=== PATIENT | male | born 1945 | race Caucasian/White ===

== ENCOUNTER 2017-11-26 15:21 | Observation (INO) | payer OTHER, MEDICARE ==
--- OUTSIDE RECORDS SUMMARY | 2017-11-26 15:50 | XMS REPORT | Clinical Summary ---
:1945 Author Organization [facility] Address [address] [place] [address] Care Team Providers Name Role Phone Alvarez Gustafson MD Primary Care Provider Allergies Active Allergy Reactions Severity Noted Date Comments No Known Drug Allergies 07/20/2015 Current Medications Prescription Sig. Disp. Refills Start End Date Status Date amLODIPine Take 2.5 mg by Active (NORVASC) 5 MG mouth daily. tablet atorvastatin Take 1 tablet by Active (LIPITOR) 10 MG mouth daily. tablet blood sugar USE DIRECTED Active diagnostic strips BID (FREESTYLE LITE STRIPS) strip test strips metFORMIN Take 500 mg by Active (GLUCOPHAGE) 500 mg mouth 2 (two) tablet times a day with meals. 2 tablet twice daily nateglinide Take 120 mg by Active (STARLIX) 120 MG mouth 3 (three) tablet times a day before meals. insulin detemir Inject 35 Units Active U-100 (LEVEMIR) 100 under the skin unit/mL injection nightly. sitaGLIPtin Take 50 mg by Active (JANUVIA) 50 MG mouth daily. tablet traMADol (ULTRAM) Take 50 mg by Active 50 mg tablet mouth as needed for moderate pain. folic acid Take 1 tablet(s) Active (FOLVITE) 1 MG every day by tablet oral route for 90 days. magnesium oxide TK 1 T PO QID. Active (MAGOX) 400 mg tablet aspirin (ECOTRIN) Take 81 mg by Active 81 MG enteric mouth daily. coated tablet CINNAMON BARK Take 1 tablet by Active (CINNAMON ORAL) mouth 2 (two) times a day. Cinnamon + chrome 2000mg omeprazole Take 40 mg by Active (PriLOSEC) 40 MG mouth daily. capsule meclizine meclizine 25 mg Active (ANTIVERT) 25 mg tablet tablet eszopiclone Take 3 mg by Active (LUNESTA) 3 mg mouth as needed tablet for sleep. Take immediately before bedtime testosterone Inject into the Active enanthate shoulder, thigh, (DELATESTRYL) 200 or buttocks mg/mL injection every 30 (thirty) days. 2 mL monthly cyanocobalamin Inject 1,000 mcg Active 1,000 mcg/mL into the injection shoulder, thigh, or buttocks every 30 (thirty) days. gabapentin Take 1 capsule 270 capsule 3 04/20/19 Active (NEURONTIN) 300 mg (300 mg total) 8 19 capsule by mouth 3 (three) times a day. carvedilol (COREG) Take 1 tablet(s) 04/20/19 Discontinued 25 MG tablet twice a day by 18 oral route for 90 days. glimepiride Take 1 tablet(s) 04/20/19 Discontinued (AMARYL) 2 MG twice a day by 18 tablet oral route for 45 days. levETIRAcetam Take 1 tablet(s) 04/20/19 Discontinued (KEPPRA) 500 MG twice a day by 18 tablet oral route for 90 days. sitaGLIPtin Take 1 tablet(s) 04/20/19 Discontinued (JANUVIA) 100 MG every day by 18 tablet oral route for 30 days. 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 Encounters Date Type Specialty Care Team Description 04/19/2017 Procedure visit Neurology Kirk Turk MD Uncontrolled type 2 diabetes mellitus with hyperglycemia, without long-term current use of insulin; Parkinsonism, unspecified Parkinsonism type; Multiple system atrophy 04/19/2017 Orders Only Neurology Vilma Patten RN Chronic bilateral low back pain, with sciatica presence unspecified (Primary Dx) 03/21/2017 Orders Only Neurology Vilma Patten RN Multiple system atrophy (Primary Dx); Parkinsonism, unspecified Parkinsonism type; Uncontrolled type 2 diabetes mellitus with hyperglycemia, without long- term current use of insulin after 11/25/2016 Family History Medical History Relation Name Comments Heart failure Father Heart failure Mother Relation Name Status Comments Father Mother Social History Tobacco Use Types Packs/Day Years Used Date Current Some Day Smoker Smokeless Tobacco: Never Used Alcohol Use Drinks/Week oz/Week Comments No Sex Assigned at Date Recorded Not on file Last Filed Vital Signs Vital Sign Reading Time Taken Blood Pressure 118/56 04/19/2017 8:12 AM [facility] Pulse 51 04/19/2017 8:12 AM [facility] Temperature 35.9 C (96.7 F) 04/19/2017 7:50 AM [facility] Respiratory Rate 16 04/19/2017 7:50 AM [facility] Oxygen Saturation 95% 04/19/2017 7:50 AM [facility] Inhaled Oxygen Concentration - - Weight 80.3 kg (177 lb 1.6 oz) 04/19/2017 7:50 AM [facility] Height 172.7 cm (5' 8") 04/19/2017 7:50 AM [facility] Body Mass Index 26.93 04/19/2017 7:50 AM [facility] Plan of Treatment Health Maintenance Due Date Last Done Comments DIABETIC FOOT EXAM 1957 DIABETIC RETINAL EYE EXAM 1957 URINE MICROALBUMIN 1957 COLON CANCER SCREENING 1997 SHINGRIX VACCINE (#1) 1997 ZOSTER VACCINE 2007 PNEUMOCOCCAL POLYSACCHARIDE VACCINE AGE 65 AND OVER 2012 PNEUMOCOCCAL-13 2012 INFLUENZA VACCINE 09/19/2017 Procedures Procedure Name Priority Date/Time Associated Diagnosis Comments ZZESTIMATED GFR Routine 04/19/2017 7:17 Results for this AM [facility] procedure are in the results section. HEPATIC FUNCTION Routine 04/19/2017 7:17 Uncontrolled type 2 Results for this PANEL AM [facility] diabetes mellitus procedure are in with hyperglycemia, the results without long-term section. current use of insulin Parkinsonism, unspecified Parkinsonism type Multiple system atrophy HC COMPLETE BLD Routine 04/19/2017 7:17 Uncontrolled type 2 Results for this COUNT W/AUTO DIFF AM [facility] diabetes mellitus procedure are in with hyperglycemia, the results without long-term section. current use of insulin Parkinsonism, unspecified Parkinsonism type Multiple system atrophy BASIC METABOLIC Routine 04/19/2017 7:17 Uncontrolled type 2 Results for this PANEL AM [facility] diabetes mellitus procedure are in with hyperglycemia, the results without long-term section. current use of insulin Parkinsonism, unspecified Parkinsonism type Multiple system atrophy after 11/25/2016 Results Estimated GFR (04/19/2017 7:17 AM) GFR Non Af Amer 74 mL/min/1.73 m2 [facility] DEPARTMENT OF PATHOLOGY AND GENOMIC MEDICINE GFR Af Amer 90 mL/min/1.73 m2 [facility] DEPARTMENT OF Comment: PATHOLOGY AND GENOMIC Chronic kidney disease: <60 mL/min/1.73m2 MEDICINE Kidney failure: <15 mL/min/1.73m2 The estimated GFR is calculated from the IDMS-traceable Modification of Diet in Renal Disease Equation. The accuracy of the calculation is poor when the creatinine is normal. Calculated values >90 mL/min/1.73m2 are not reported. This equation has not been validated in children (<18 years), women, the elderly (>70 years), or ethnic groups other than Caucasians and Americans. Specimen Plasma specimen Performing Organization Address City/State/Zipcode Phone Number [facility] DEPARTMENT OF PATHOLOGY AND [address] [place] [address] [facility] CBC with platelet and differential (04/19/2017 7:17 AM) WBC 10.58 4.50 - 11.00 k/uL [facility] DEPARTMENT OF PATHOLOGY AND GENOMIC MEDICINE RBC 5.58 4.40 - 6.00 m/uL [facility] DEPARTMENT OF PATHOLOGY AND GENOMIC MEDICINE HGB 17.2 14.0 - 18.0 g/dL [facility] DEPARTMENT OF PATHOLOGY AND GENOMIC MEDICINE HCT 49.7 41.0 - 51.0 % [facility] DEPARTMENT OF PATHOLOGY AND GENOMIC MEDICINE MCV 89.1 82.0 - 100.0 fL [facility] DEPARTMENT OF PATHOLOGY AND GENOMIC MEDICINE MCH 30.8 27.0 - 34.0 pg [facility] DEPARTMENT OF PATHOLOGY AND GENOMIC MEDICINE MCHC 34.6 31.0 - 37.0 g/dL [facility] DEPARTMENT OF PATHOLOGY AND GENOMIC MEDICINE RDW - SD 43.7 37.0 - 55.0 fL [facility] DEPARTMENT OF PATHOLOGY AND GENOMIC MEDICINE MPV 10.5 8.8 - 13.2 fL [facility] DEPARTMENT OF PATHOLOGY AND GENOMIC MEDICINE Platelet count 285 150 - 400 k/uL [facility] DEPARTMENT OF PATHOLOGY AND GENOMIC MEDICINE Nucleated RBC 0.00 /100 WBC [facility] DEPARTMENT OF PATHOLOGY AND GENOMIC MEDICINE Neutrophils 69.7 (H) 39.0 - 69.0 % [facility] DEPARTMENT OF PATHOLOGY AND GENOMIC MEDICINE Lymphocytes 16.8 (L) 25.0 - 45.0 % [facility] DEPARTMENT OF PATHOLOGY AND GENOMIC MEDICINE Monocytes 9.7 0.0 - 10.0 % [facility] DEPARTMENT OF PATHOLOGY AND GENOMIC MEDICINE Eosinophils 2.7 0.0 - 5.0 % [facility] DEPARTMENT OF PATHOLOGY AND GENOMIC MEDICINE Basophils 0.7 0.0 - 1.0 % [facility] DEPARTMENT OF PATHOLOGY AND GENOMIC MEDICINE Immature granulocytes 0.4Comment: 0.0 - 1.0 % [facility] DEPARTMENT OF "Immature PATHOLOGY AND GENOMIC granulocytes" MEDICINE (promyelocytes, myelocytes, metamyelocytes) Specimen Blood Performing Organization Address City/[facility] Phone Number [facility] DEPARTMENT OF PATHOLOGY AND [address] [place] [id number] [employer] MEDICINE Hepatic function panel (04/19/2017 7:17 AM) Albumin 3.8 3.5 - 5.0 g/dL [facility] DEPARTMENT OF PATHOLOGY AND GENOMIC MEDICINE Total bilirubin 0.3 0.0 - 1.2 mg/dL [facility] DEPARTMENT OF PATHOLOGY AND GENOMIC MEDICINE Bilirubin direct <0.2 0.0 - 0.3 mg/dL [facility] DEPARTMENT OF PATHOLOGY AND GENOMIC MEDICINE Alkaline phosphatase 45 40 - 129 U/L [facility] DEPARTMENT OF PATHOLOGY AND GENOMIC MEDICINE Protein 7.9 6.3 - 8.3 g/dL [facility] DEPARTMENT OF Comment: PATHOLOGY AND GENOMIC [place] 4.6-7.0 g/dL MEDICINE 1 week 4.4-7.6 g/dL 7 months-1year5.1-7.3 g/dL 1-2 years5.6-7.5 g/dL >3 years6.0-8.0 g/dL 18-150 6.3-8.3 g/dL ALT 15 5 - 50 U/L [facility] DEPARTMENT OF PATHOLOGY AND GENOMIC MEDICINE AST 25 10 - 50 U/L [facility] DEPARTMENT OF PATHOLOGY AND GENOMIC MEDICINE Specimen Plasma specimen Performing Organization Address City/[facility] Phone Number [facility] DEPARTMENT OF PATHOLOGY AND [address] [place] [id number] GENOMIC MEDICINE Basic metabolic panel (04/19/2017 7:17 AM) Sodium 133 (L) 135 - 148 mEq/L [facility] DEPARTMENT OF PATHOLOGY AND GENOMIC MEDICINE Potassium 4.9 3.5 - 5.0 mEq/L [facility] DEPARTMENT OF PATHOLOGY AND GENOMIC MEDICINE Chloride 94 (L) 98 - 112 mEq/L [facility] DEPARTMENT OF PATHOLOGY AND GENOMIC MEDICINE CO2 22 (L) 24 - 31 mEq/L [facility] DEPARTMENT OF PATHOLOGY AND GENOMIC MEDICINE Anion gap 17 (H) 7 - 15 mEq/L [facility] DEPARTMENT OF PATHOLOGY Comment: AND GENOMIC MEDICINE Starting from May , anion gap calculation no longer incorporates potassium. Please note the change. BUN 19 8 - 23 mg/dL [facility] DEPARTMENT OF PATHOLOGY AND GENOMIC MEDICINE Creatinine 1.0 0.7 - 1.2 mg/dL [facility] DEPARTMENT OF PATHOLOGY AND GENOMIC MEDICINE Glucose 114 (H) 65 - 99 mg/dL [facility] DEPARTMENT OF PATHOLOGY AND GENOMIC MEDICINE Calcium 9.6 8.8 - 10.2 mg/dL [facility] DEPARTMENT OF PATHOLOGY AND GENOMIC MEDICINE Specimen Plasma specimen Performing Organization Address City/State/Zipcode Phone Number [facility] DEPARTMENT OF PATHOLOGY AND [address] [place] [address] [employer] [facility] after 11/25/2016 Insurance Payer Benefit Plan / Group Subscriber ID Type Phone Address MEDICARE MEDICARE PART A AND B xxxxxxxxxx Medicare [place], [place] AARP AARP SUPPLEMENT xxxxxxxxxxx Commercial [phone] [address]
[2017-11-26] MEDS ORDERED: PROMETHAZINE 25 MG/ML VIAL IV PRN (16:47)
[2017-11-26] MEDS ORDERED: GLUCAGON 1 MG/VIAL IM PRN (16:48)
[2017-11-26] MEDS ORDERED: D50W 25 GM/50 ML SYRINGE IV PRN (16:48)
[2017-11-26] MEDS: NA CHLORIDE 0.9% 1,000 ML IV SCH (17:00)
[2017-11-26 17:11] LABS: Absolute Lymphocytes (CBC) 1.8 K/uL (0.7-4.9); Absolute Neutrophil 8.5 K/uL (1.8-8.0); Basophils % 0.6 % (0-1.3); Eosinophils % 1.7 % (0-4.4); Hematocrit 55.5 % (39.6-49.0); Lymphocytes % 15.2 % (15.3-44.8); MCH 29.9 pg (27.0-35.0); MCV 89.5 fL (80-100); MPV 8.4 fL (7.6-11.3); Monocytes % 8.4 % (3.3-12.3)
[2017-11-26 17:35] LABS: Albumin 3.4 g/dL (3.4-5.0); Bilirubin Total 0.5 mg/dL (0.2-1.0); Potassium 4.3 mmol/L (3.5-5.1); Protein, Total 7.1 g/dL (6.4-8.2); Thyroid Stimulating Hormone 2.05 uIU/mL (0.360-3.740)
[2017-11-26] MEDS: Levofloxacin500mg IV 500 MG/100 ML BAG IV SCH (18:00)
--- NOTE | 2017-11-26 18:38 | RAD REPORT ---
EXAM DESCRIPTION: RAD - Chest Pa And Lat (2 Views) - 11/26/2017 6:20 pm CLINICAL HISTORY: Cough, shortness of breath COMPARISON: Portable September 2016 TECHNIQUE: PA and lateral views of the chest were obtained. FINDINGS: The lungs are clear of an acute infiltrate. Fibrotic stranding is present in a pattern not significantly different from the comparison. Calcified nodule is seen lower right lung field. Lung m arkings are minimally more prominent in the left base but not definitive for infiltrate. Heart size is normal and central vasculature is within normal limits. No pleural effusion or pneumothorax seen . No acute bony finding noted. No aortic abnormality. IMPRESSION: No consolidation, mass or failure. Interstitial markings are slightly increased in the left base but not definitive for infiltrate. This can be monitored and correlated with exam findings.
[2017-11-26 20:14] LABS: Urine Appearance CLEAR; Urine Blood NEGATIVE (NEG); Urine Color YELLOW; Urine Glucose 3+ (NEG); Urine Protein 2+ (NEG); Urine Specific Gravity >=1.030 (1.005-1.030); Urine Urobilinogen 0.2 mg/dL (0.2-1.0)
[2017-11-26] MEDS: INSULIN -REGULAR HUMAN 50 UNIT/0.5 ML ML SQ SCH (20:29)
[2017-11-26] MEDS ORDERED: ESZOPICLONE 1 MG TAB PO PRN (20:35)
[2017-11-26 20:36] LABS: Urine Bacteria <20 /HPF (NONE SEEN); Urine Bilirubin NEGATIVE (NEG); Urine Culture Reflex Order NOT NEEDED; Urine RBC <5 /HPF (NONE SEEN)
[2017-11-26] MEDS ORDERED: ENOXAPARIN 40 MG/0.4 ML SQ SCH (21:00)
[2017-11-26] MEDS ORDERED: ATORVASTATIN 10 MG TAB PO SCH (21:00)
[2017-11-26 21:03] VITALS: BMI 26.2
[2017-11-26] MEDS: MAGNESIUM OXIDE 400 MG TAB PO SCH (22:33)
[2017-11-26] MEDS: ASPIRIN 81 MG CHEWABLE TABLET PO SCH (22:33)
[2017-11-26] MEDS: GABAPENTIN 300 MG CAP PO SCH (22:33)
[2017-11-26] MEDS: TRAMADOL HCL 50 MG TAB PO SCH (22:34)
[2017-11-27] MEDS: METRONIDAZOLE 500mg IVPB 500 MG/100 ML BAG IV SCH ×3 (01:14→17:15)
--- NOTE | 2017-11-27 04:35 | HP ---
Date of Admission: 11/26/2017 Chief Complaint: Abdominal pain, nausea, not eating, and feeling weak and tired. History Of Present Illness: This is a 72-year-old male patient who came into office today with his w lana who reported that in last few weeks patient is constantly sleepy. His legs are more weaker and s hakier than before. He had 2 falls in last 3 months and he was not using his walker so far, but star ariel to use his walker as of today. In last 2 days, he is not able to keep any of his medications mora n in his stomach because of lot of nausea. Denies any vomiting. No fever or chills. Denies any abd ominal pain. He has not had anything to eat or drink in last 2 days except small amount of bowl of c ereal yesterday and nothing today. He normally takes insulin Levemir 40 to 45 units at bedtime and sherice rodriguez did not take his insulin yesterday. Did not take any of his medications today. He has some cough and feels congested in his chest. After he was evaluated in office, he was admitted to the hospital for further evaluation and management of these problems. Review of Systems: GI: As mentioned above. Constitutional: As mentioned above. 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 All other systems reviewed and negative. Past Medical History: Significant for osteoarthritis at multiple sites, allergic rhinitis, testicula r hypofunction, hypertension, hyperkalemia, diabetes mellitus, type 2, uncontrolled, hyperlipidemia, vitamin B12 deficiency anemia, hypomagnesemia, benign prostatic hypertrophy, orthostatic hypotension. Past Surgical History: Significant for right foot surgery in 2013 and cholecystectomy. Allergies: NO KNOWN ALLERGIES. Family History: Significant for father with lung cancer, sister with COPD and coronary artery diseas e and bipolar disorder. Social History: Negative for smoking or alcohol use. Medications: Amlodipine 5 mg p.o. daily, hold if systolic blood pressure less than 130, aspirin 81 m g daily, atorvastatin 10 mg daily, carvedilol 12.5 mg 2 times a day if systolic blood pressure higher than 140, vitamin B12 1000 mcg injection every month, Lunesta 3 mg at bedtime as needed for sleep, f olic acid 1 mg daily, Januvia 100 mg p.o. daily, Levemir 40 to 45 units subcutaneous injection at bed time, Zyrtec 10 mg daily as needed for allergies, testosterone 200 mg/mL and he takes 2 mL intramuscu lar injection every 4 weeks, Ultram 50 mg 4 times a day as needed, sodium polystyrene 30 g by mouth e very week, montelukast 10 mg daily, metformin 500 mg takes 2 tablets by mouth 2 times a day, magnesiu m oxide 400 mg 1 tablet by mouth 4 times a day. Physical Examination: Vital Signs: Initial temperature 97.4, pulse 114, respiratory rate 20, blood pressure 127/77, oxygen saturation 95%, height 5 feet 8 inches, weight 172 pounds. General: Awake, alert, oriented, not in distress. HEENT: Head atraumatic, normocephalic. Conjunctivae nonerythematous. Sclerae white. Mouth, no thr ush or edema noted. Ears/Nose, no mass, lesion, discharge noted. Neck: Supple. No JVD, lymph nodes, bruit, thyromegaly noted. Lungs: Bilateral good equal air entry. Clear to auscultation. No rhonchi. No rales. Heart: Normal heart sounds, no murmur or gallop. Abdomen: Soft, bowel sounds normoactive. No guarding, rigidity, distention. Presence of bilateral lower quadrant tenderness. No rebound tenderness. Extremities: No leg edema. No calf tenderness. Skin: No rash, ulcer, cellulitis. Lymphatics: No lymph node enlargement in neck, supraclavicular, infraclavicular region. Neuro: No focal neurological deficit. Chest: Unremarkable. External Genitalia: Deferred. Rectal: Deferred. Laboratory Data: White count 11.5, hemoglobin 18.5, platelets 260. Sodium 134, potassium 4.3, chlor yissel 99, bicarb 26, BUN 11, creatinine 1.10, glucose 285. Liver function tests unremarkable. Procalc itonin less than 0.05. Lactate 1.5. TSH 2.05. Urinalysis pending. Impression: 1.Abdominal pain, rule out acute diverticulitis. 2.Hypertension. 3.Hyperlipidemia. 4.Type 2 diabetes mellitus, uncontrolled. 5.Benign prostatic hypertrophy. 6.Vitamin B12 deficiency. 7.Testicular hypofunction. 8.Hypomagnesemia. Plan: Admit the patient to hospital for further evaluation and management of this problem. The erin ent is appropriate for inpatient and is expected to spend 2 midnights in hospital. We will go ahead and start him on empiric IV antibiotic which is Levaquin and metronidazole. Get a CAT scan of abdome n and pelvis with contrast. We will manage diabetes with sliding scale insulin. Clear liquid diet w as ordered and we will go ahead and give DVT prophylaxis with Lovenox per order. AGATHA/MODL Voice ID: [id number]
[2017-11-27] MEDS: NA CHLORIDE 0.9% 1,000 ML IV SCH (05:56)
[2017-11-27] MEDS: INSULIN -REGULAR HUMAN 50 UNIT/0.5 ML ML SQ SCH ×4 (07:30→16:30)
[2017-11-27] MEDS ORDERED: INFLUENZA VACCINE (for 3y+) 0.5 ML DOSE IMVAC ONE (08:00)
[2017-11-27] MEDS ORDERED: PANTOPRAZOLE 40MG TABLET PO SCH (09:00)
[2017-11-27] MEDS ORDERED: FOLIC ACID 1 MG TABLET PO SCH (09:00)
[2017-11-27] MEDS: GABAPENTIN 300 MG CAP PO SCH ×2 (09:33→13:33)
[2017-11-27] MEDS: TRAMADOL HCL 50 MG TAB PO SCH (09:33)
[2017-11-27] MEDS: ASPIRIN 81 MG CHEWABLE TABLET PO SCH (09:33)
[2017-11-27] MEDS: MAGNESIUM OXIDE 400 MG TAB PO SCH (09:33)
--- NOTE | 2017-11-27 11:15 | RAD REPORT ---
EXAM DESCRIPTION: CT - Abdomen Pelvis W Contrast - 11/27/2017 9:17 am CLINICAL HISTORY: Abdominal pain COMPARISON: CT March 2007, CT September 2016 TECHNIQUE: Biphasic, helical CT imaging of the abdomen and pelvis was performed following 100 ml non -ionic IV contrast. Oral contrast was given. All CT scans are performed using dose optimization technique as appropriate and may include automated exposure control or mA/KV adjustment according to patient size. FINDINGS: No suspicious findings in the lung bases. Scarring changes are stable. No pericardial effu jessie. The liver, spleen, and pancreas show no suspicious findings. Cholecystectomy clips are present. No bi liary tree dilatation. Symmetric renal function is seen with no hydronephrosis or suspicious renal mass. No pyelonephritis o r acute renal parenchymal process. No urinary bladder abnormality. Prostate gland is prominent but st able. No seminal vesicle abnormality. Fullness of the right adrenal gland is stable back to 2007. No dilated bowel loops or bowel wall thickening. No free air, free fluid or inflammatory stranding. No hernia, mass or bulky lymphadenopathy. No suspicious bony findings. IMPRESSION: No obstruction, free air or surgically emergent finding. No acute GI process identifiabl e. No pyelonephritis or acute process seen. No active finding identifiable.
--- NOTE | 2017-11-27 12:12 | EKG ---
Test Date: 2017-11-27 Test Time: 08:03:10 Staff Developer: DENY MEASUREMENT RESULTS: Intervals: Rate: 94 NV: 146 QRSD: 86 QT: 350 QTc: 437 [place]: P: 62 NV: 146 QRS: 85 T: 47 INTERPRETIVE STATEMENTS: Sinus rhythm with premature ventricular complexes Otherwise normal ECG Compared to ECG 10/05/2016 07:29:32 Ventricular premature complex(es) now present Electronically Signed On 11-27-17 12:11:44 CDT by Drew Sanz
[2017-11-27] MEDS: Levofloxacin500mg IV 500 MG/100 ML BAG IV SCH (17:15)
[2017-11-27 20:19] VITALS: BP 121/85; TEMP 97.4
--- NOTE | 2017-11-28 05:46 | DS ---
Date of Discharge: 11/27/2017 Disposition: Discharged to go home. Physical Examination: HEENT: Unremarkable. Lungs: Clear to auscultation. Heart: Sounds normal. Abdomen: Soft, bowel sounds normal. No guarding, rigidity, tenderness, distention. Extremities: No leg edema. Discharge Medications And Instructions: 1.Continue all prior home medications except stop metformin. 2.Follow up at my office in 1 week. 3.Take Levaquin and metronidazole as prescribed for 1 week. 4.The patient was instructed to come to office day after tomorrow for known fasting blood work to ch tracie renal function and I have also talked to him about not to take metformin until further instructio n. Hospital Course: A 72-year-old male patient, came into office yesterday with nausea, not able to eat anything, feeling weak and sleepy. Please see dictated H and P for more information. After patient was evaluated at the office, decision was made to admit him to the hospital. Further evaluation rev ealed slightly elevated white count, otherwise, unremarkable CBC and chemistry profile. Chest x-ray was unremarkable. EKG showed normal sinus rhythm with some premature atrial complex. No atrial fibr illation. CAT scan of abdomen and pelvis was done today with contrast did not show any acute abnorma lity. Clinically, I was concerned about possibility of acute diverticulitis, so yesterday, he was st arted on IV Levaquin and IV metronidazole. This morning when I saw him, he was feeling much better, had no abdominal tenderness at all. He was started on clear liquid diet yesterday. Today after CAT scan, he was started on regular diet, and this evening, I talked to him on the phone. He is feeling much better. He is ready to go home. Medically, he is stable for discharge. Final Diagnoses: 1.Abdominal pain, rule out acute diverticulitis. 2.Hypertension. 3.Hyperlipidemia. 4.Type 2 diabetes mellitus, uncontrolled. 5.Benign prostatic hypertrophy. 6.Vitamin B12 deficiency. 7.Testicular hypofunction. 8.Hypomagnesemia. AGATHA/MODL Voice ID: [id number] Report ID: [id number]
== END 2017-11-27 20:10 | disposition home or self-care (01) ==
LOC: INTOOBSV 15:48 → 2ND 15:48
PROVIDERS: ADMIT Internal Medicine; ATTEND Internal Medicine
DX: R10.9 Unspecified abdominal pain (principal); I10 Essential (primary) hypertension; E78.5 Hyperlipidemia, unspecified; E11.65 Type 2 diabetes mellitus with hyperglycemia; N40.0 Benign prostatic hyperplasia without lower urinary tract symptoms; E53.8 Deficiency of other specified B group vitamins; E29.1 Testicular hypofunction; E83.42 Hypomagnesemia; Z23 Encounter for immunization
CPT/HCPCS: 36415; 71046; 74177; 80053; 81001; 82962; 83605; 83735; 84145; 84443; 85025; 93005; G0008; G0378; J1650; J2550; J7030; Q2035; Q9967

== ENCOUNTER 2018-10-02 09:51 | Inpatient (IN) | payer OTHER, MEDICARE ==
--- OUTSIDE RECORDS SUMMARY | 2018-10-02 10:00 | XMS REPORT | Clinical Summary ---
:1945 Author Organization [facility] Address [address] [place] [address] Care Team Providers Name Role Phone Alvarez Gustafson MD Primary Care Provider Allergies Active Allergy Reactions Severity Noted Date Comments No Known Drug Allergies 07/20/2015 Medications Medication Sig Dispensed Refills Start Date End Date Status amLODIPine (NORVASC) Take 2.5 mg by 0 Active 5 MG tablet mouth daily. atorvastatin Take 1 tablet by 0 Active (LIPITOR) 10 MG mouth daily. tablet blood sugar USE DIRECTED 0 Active diagnostic strips BID (FREESTYLE LITE STRIPS) strip test strips metFORMIN Take 500 mg by 0 Active (GLUCOPHAGE) 500 mg mouth 2 (two) tablet times a day with meals. 2 tablet twice daily nateglinide Take 120 mg by 0 Active (STARLIX) 120 MG mouth 3 (three) tablet times a day before meals. insulin detemir Inject 35 Units 0 Active U-100 (LEVEMIR) 100 under the skin unit/mL injection nightly. sitaGLIPtin Take 50 mg by 0 Active (JANUVIA) 50 MG mouth daily. tablet traMADol (ULTRAM) 50 Take 50 mg by 0 Active mg tablet mouth as needed for moderate pain. folic acid (FOLVITE) Take 1 tablet(s) 0 Active 1 MG tablet every day by oral route for 90 days. magnesium oxide TK 1 T PO QID. 0 Active (MAGOX) 400 mg tablet aspirin (ECOTRIN) 81 Take 81 mg by 0 Active MG enteric coated mouth daily. tablet CINNAMON BARK Take 1 tablet by 0 Active (CINNAMON ORAL) mouth 2 (two) times a day. Cinnamon + chrome 2000mg omeprazole Take 40 mg by 0 Active (PriLOSEC) 40 MG mouth daily. capsule meclizine (ANTIVERT) meclizine 25 mg 0 Active 25 mg tablet tablet eszopiclone Take 3 mg by 0 Active (LUNESTA) 3 mg mouth as needed tablet for sleep. Take immediately before bedtime testosterone Inject into the 0 Active enanthate shoulder, thigh, (DELATESTRYL) 200 or buttocks every mg/mL injection 30 (thirty) days. 2 mL monthly cyanocobalamin 1,000 Inject 1,000 mcg 0 Active mcg/mL injection into the shoulder, thigh, or buttocks every 30 (thirty) days. gabapentin Take 1 capsule 270 capsule 3 04/19/2017 (NEURONTIN) 300 mg (300 mg total) by 9 capsule mouth 3 (three) times a day. 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 Encounters Date Type Specialty Care Team Description 04/28/2018 Refill Neurology Kirk Turk MD 03/22/2018 Hospital Encounter Radiology Danny Richards MD 03/22/2018 Hospital Encounter Radiology Danny Richards, Parkinson's disease ([facility]) 01/16/2018 Transcribe Orders Access Danny Richards Parkinson's disease ([facility]) (Primary Dx) after 10/01/2017 Family History Medical History Relation Name Comments Heart failure Father Heart failure Mother Relation Name Status Comments Father Mother Social History Tobacco Use Types Packs/Day Years Used Date Current Some Day Smoker Smokeless Tobacco: Never Used Alcohol Use Drinks/Week oz/Week Comments No Sex Assigned at Date Recorded Not on file Job Start Date Occupation Industry Not on file Not on file Not on file Travel History Travel Start Travel End No recent travel history available. Last Filed Vital Signs Not on file Plan of Treatment Health Maintenance Due Date Last Done Comments DIABETIC RETINAL EYE EXAM 1945 DIABETIC FOOT EXAM 1957 URINE MICROALBUMIN 1957 COLONOSCOPY SCREENING 1997 SHINGLES VACCINES (#1) 1997 65+ PNEUMOCOCCAL VACCINE (1 of 2 - PCV13) 2012 INFLUENZA VACCINE 09/19/2018 Procedures Procedure Name Priority Date/Time Associated Diagnosis Comments NM BRAIN SPECT W I Routine 03/22/2018 6:08 PM Parkinson's disease Results for this 123 DATSCAN [facility] ([facility]) procedure are in the results section. after 10/01/2017 Results NM Brain Spect W I 123 Datscan (03/22/2018 6:08 PM [facility]) Specimen Narrative Performed At PROCEDURE:[facility] I [facility] INDICATION:Parkinson's disease. TECHNIQUE: The patient was pretreated with potassium iodide drops for thyroid protection and then injected with 4 mCi of I-123 DaTscan IV. Brain SPECT imaging was then performed. FINDINGS:Striatal uptake appears normal, bilaterally. IMPRESSION: 1.Normal study.No evidence for an underlying primary Parkinsonian syndrome. [facility]-[id number] Procedure Note Interface, Radiology Results Incoming - 03/22/2018 6:40 PM [facility] PROCEDURE: NM BRAIN SPECT W I 123 DATSCAN INDICATION: Parkinson's disease. TECHNIQUE: The patient was pretreated with potassium iodide drops for thyroid protection and then injected with 4 mCi of I-123 DaTscan IV. Brain SPECT imaging was then performed. FINDINGS: Striatal uptake appears normal, bilaterally. IMPRESSION: 1. Normal study. No evidence for an underlying primary Parkinsonian syndrome. [facility]-[id number] Performing Organization Address City/State/Zipcode Phone Number [place] [address] [place] [address] after 10/01/2017 Insurance Payer Benefit Plan / Subscriber ID Effective Dates Phone Address Type Group MEDICARE MEDICARE PART A xxxxxxxxxxx 2012-Present [place], [place] Medicare AND B AARP AARP SUPPLEMENT xxxxxxxxxxx 2014-[employer] [place] (Home) [place] [address] Advance Directives Patient has advance care planning documents on file. For more information, please contact:[facility] [place] [address]
[2018-10-02] MEDS ORDERED: MORPHINE 2 MG/ML SYR ONE (10:36)
[2018-10-02] MEDS ORDERED: ONDANSETRON 4 MG/2 ML VIAL ONE (10:36)
[2018-10-02] MEDS ORDERED: NA CHLORIDE 0.9% 1,000 ML ONE ×2 (10:37→17:09)
[2018-10-02 10:54] LABS: Absolute Lymphocytes (CBC) 1.1 K/uL (0.7-4.9); Basophils % 0.6 % (0-1.3); Lymphocytes % 5.7 % (15.3-44.8); MPV 8.8 fL (7.6-11.3); Protime INR 1.11; RBC Red Blood Cell Count 6.18 M/uL (4.33-5.43)
[2018-10-02 11:10] LABS: ALT/SGPT 15 U/L (12-78); AST/SGOT 13 U/L (15-37); Albumin 3.5 g/dL (3.4-5.0); Alkaline Phosphatase 55 U/L (45-117); BUN Blood Urea Nitrogen 15 mg/dL (7-18); Bicarbonate 25 mmol/L (21-32); Bilirubin Direct 0.1 mg/dL (0-0.2); Bilirubin Total 0.6 mg/dL (0.2-1.0); Glucose Level 290 mg/dL (74-106); Lipase 67 U/L (73-393); Potassium 4.3 mmol/L (3.5-5.1); Protein, Total 7.7 g/dL (6.4-8.2); Sodium Level 133 mmol/L (136-145); Troponin (Emerg Dept Use Only) < 0.02 ng/mL (0.0-0.045)
[2018-10-02] MEDS ORDERED: PROMETHAZINE 25 MG/ML VIAL ONE ×2 (11:17→18:54)
--- NOTE | 2018-10-02 12:16 | RAD REPORT ---
EXAM DESCRIPTION: MRI - Lumbar Spine Wo Con- 10/02/2018 11:45 am CLINICAL HISTORY: recent surgery, diarrhea Back pain, radiculopathy COMPARISON: Lumbar Spine Wo Con dated 04/29/2018; Lumbar Spine Wo Con dated 04/16/2017; L Spine With B ending Views dated 04/29/2018 FINDINGS: Vertebral body heights are within normal limits. Elevated T2/IR signal is present in the spinous process of L4, likely related to recent intervention. No fracture is suspected. The conus medullaris terminates at a normal level. No thickening of the cauda equina or clumping of n erve roots seen. L1-2 level: Mild posterior concentric disc bulge is present with mild facet and ligament flavum hyper trophy. Mild central canal narrowing is seen. Mild narrowing the anterior inferior aspects of both ex it foramina. L2-3 level: Mild facet hypertrophy. L3-4 level: Mild to moderate facet and ligamentum flavum hypertrophy. No significant central canal st enosis seen. Mild narrowing the anterior inferior aspects of both exit foramina. L4-5 level: Mild posterior disc bulge is present. Postsurgical changes are present involving the post erior elements. Mild fluid is seen along the posterior left facet joint measuring 18 mm x 10 mm. Righ t hemilaminectomy is present. Along the dorsal aspect of the canal hypointense oblong structure is pr esent measuring 21 x 12 mm (cc by AP) within the dorsal epidural space. Etiology of this is unclear b ut the findings do result moderate to significant central canal stenosis at this level. L5-S1 level: Mild facet and ligamentum flavum hypertrophy. IMPRESSION: Moderate central canal narrowing is present caused by oblong hypointense structure along the dorsal epidural space at the L4-5 level. Exact etiology and composition of this lesion is not cl ear, however it is new since the pre-procedure 04/29/2018 MR study. A calcified or cartilaginous frag ment is possible. Sequestered disc fragment would be unusual in this location but is not completely e xcluded either.
[2018-10-02 12:48] LABS: Blood Morphology Comment NOT SEEN (NOT SEEN); Platelet Estimate ADEQ
--- NOTE | 2018-10-02 13:05 | RAD REPORT ---
EXAM DESCRIPTION: CTAbdomen Pelvis W Contrast - 10/02/2018 12:58 pm CLINICAL HISTORY: Abdominal pain. abdominal pain, vomiting COMPARISON: Abdomen Pelvis W Contrast dated 11/27/2017; CT ABD PELVIS W CONTRAST dated 04/08/2007 TECHNIQUE: Biphasic CT imaging of the abdomen and pelvis was performed with 100 ml non-ionic IV cont rast. All CT scans are performed using dose optimization technique as appropriate and may include automated exposure control or mA/KV adjustment according to patient size. FINDINGS: Heavily calcified granuloma is present in the right lung base anteriorly. The liver and spleen demonstrate multiple calcified granulomas but are otherwise unremarkable. Modera te thickening of the right adrenal gland seen. The gallbladder surgically absent. The left adrenal gl and is normal. The pancreas and kidneys unremarkable. No aggressive mass or hydronephrosis. No bowel obstruction, free air, free fluid or abscess. The appendix is normal. No evidence of signi ficant lymphadenopathy. Prominent lumbosacral degenerative changes. IMPRESSION: No acute intra-abdominal or pelvic finding. Moderate thickening of the right adrenal gland noted, chronic in appearance.
--- NOTE | 2018-10-02 13:51 | RAD REPORT ---
EXAM DESCRIPTION: RAD - Chest Pa And Lat (2 Views) - 10/02/2018 1:44 pm CLINICAL HISTORY: leukocytosis Chest pain. COMPARISON: Chest Pa And Lat (2 Views) dated 11/26/2017; Chest Single View dated 10/03/2016; Chest Pa And Lat (2 Views) dated 06/09/2016; CHEST SINGLE VIEW dated 05/07/2015; Abdomen Pelvis W Contrast izabel ed 10/02/2018 FINDINGS: Lungs are mildly emphysematous with a calcified granuloma in the right lower lobe. No foca l infiltrate is seen. The heart is normal in size. No displaced fractures. IMPRESSION: Mild COPD.
[2018-10-02] MEDS ORDERED: MAGNE/ALUM HYDROXD 30 ML UCUP ONE (16:35)
[2018-10-02] MEDS ORDERED: LIDOCAINE VISCOUS 2% SOLN 15 ML UDC ONE (16:35)
[2018-10-02 16:41] LABS: Urine Blood 1+ (NEG); Urine Glucose 2+ (NEG); Urine Protein 2+ (NEG); Urine pH 5.5 (5.0-7.0)
--- NOTE | 2018-10-02 17:22 | ER ---
Nurse's Notes [facility] Name: Jeremiah Morales Age: 73 yrs Sex: Male : 1945 Arrival Date: 10/02/2018 Time: 09:54 Bed 19 Private MD: Diagnosis: Vomiting;Leukocystosis;Dehydration Presentation: 10/02 09:54 Presenting complaint: EMS states: VOMITING SINCE LAST PM. Transition of care: patient bp was not received from another setting of care. Onset of symptoms was October 01, 2018 at 20:00. Risk Assessment: Do you want to hurt yourself or someone else? Patient reports no desire to harm self or others. Initial Sepsis Screen: Does the patient meet any 2 criteria? No. Patient's initial sepsis screen is negative. Does the patient have a suspected source of infection? No. Patient's initial sepsis screen is negative. Care prior to arrival: Medication(s) given: zofran 4 mg, IV initiated. 20 GA, in the left wrist, Glucose check: 334. 09:54 Method Of Arrival: EMS: [facility] bp 09:54 Acuity: HEATHER 3 bp Triage Assessment: 09:58 General: Appears in no apparent distress. comfortable, Behavior is cooperative, bp appropriate for age, anxious. Pain: Denies pain. EENT: No deficits noted. Neuro: No deficits noted. Cardiovascular: No deficits noted. Respiratory: No deficits noted. GI: Reports nausea, vomiting. : No signs and/or symptoms were reported regarding the genitourinary system. Derm: No deficits noted. Musculoskeletal: No deficits noted. Historical: - Allergies: 09:58 Grass Pollen; bp - Home Meds: 09:58 aspirin 81 mg Oral chew 1 tab once daily [Active]; atorvastatin 10 mg Oral tab 1 tab bp once daily [Active]; carbamazepine 100 mg Oral chew 1 tab every 12 hours [Active]; carvedilol 12.5 mg Oral tab 1 tab 2 times per day [Active]; fludrocortisone 0.1 mg Oral tab 1 tab once daily [Active]; folic acid 1 mg Oral tab 1 tab once daily [Active]; glimepiride 2 mg Oral tab 1 tab twice a day [Active]; Januvia 100 mg Oral tab 1 tab once daily [Active]; magnesium oxide 400 mg Oral cap twice a day [Active]; trazodone 50 mg Oral tab PRN sleep [Active]; - PMHx: 09:58 Diabetes - NIDDM; Hypertension; 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 - Social history:: Smoking status: unknown. - Ebola Screening: : No symptoms or risks identified at this time. Screenin:02 Abuse screen: Denies threats or abuse. Denies injuries from another. Nutritional bp screening: No deficits noted. Tuberculosis screening: No symptoms or risk factors identified. Fall Risk None identified. Assessment: 10:02 General: SEE TRIAGE NOTE. bp 10:02 GI: Abdomen is non-distended. bp 11:15 Reassessment: PT IN MRI. bp 11:48 Reassessment: PT RETURNED FROM MRI. bp 13:14 Reassessment: PT RETURNED FROM CT. bp 13:35 Reassessment: PT TO XRAY. bp 14:34 Reassessment: PHLEBOTOMY AT B/S FOR ADDITIONAL LABS. bp 16:00 Reassessment: VS STABLE ON MONITOR, DISPO PENDING. bp 17:40 Reassessment: ADMIT IN PROCESS. bp 19:00 Reassessment: Patient appears in no apparent distress at this time. Patient and/or jb4 family updated on plan of care and expected duration. Pain level reassessed. Patient is alert, oriented x 3, equal unlabored respirations, skin warm/dry/pink. Pt assisted back to bed from restroom, reconnected to monitoring equipment. 20:00 Reassessment: Patient appears in no apparent distress at this time. Patient and/or jb4 family updated on plan of care and expected duration. Pain level reassessed. Patient is alert, oriented x 3, equal unlabored respirations, skin warm/dry/pink. 20:41 Reassessment: Patient appears in no apparent distress at this time. Patient and/or jb4 family updated on plan of care and expected duration. Pain level reassessed. Patient is alert, oriented x 3, equal unlabored respirations, skin warm/dry/pink. Assisted back to room from restroom. 20:45 Reassessment: attempted to call report instructed to wait for call back. jb4 21:25 Reassessment: Patient appears in no apparent distress at this time. Patient and/or jb4 family updated on plan of care and expected duration. Pain level reassessed. Patient is alert, oriented x 3, equal unlabored respirations, skin warm/dry/pink. Patient states feeling better. Vital Signs: 09:58 BP 164 / 96; Pulse 82; Resp 16; Temp 98; Pulse Ox 97% ; Weight 74.84 kg; Height 5 ft. 9 bp in. (175.26 cm); 10:43 BP 158 / 113; Pulse 95; Resp 16; Pulse Ox 99% ; bp 11:50 BP 111 / 55; Pulse 88; Resp 16; Pulse Ox 98% ; bp 13:14 BP 180 / 100; Pulse 51; Resp 14; Pulse Ox 100% ; bp 14:31 BP 168 / 98; Pulse 65; Resp 16; Pulse Ox 100% ; bp 15:57 BP 128 / 71; Pulse 48; Resp 14; Pulse Ox 97% ; bp 17:39 BP 100 / 56; Pulse 100; Resp 16; Pulse Ox 100% ; bp 18:47 BP 125 / 66; Pulse 86; Resp 16; Pulse Ox 97% ; bp 20:00 BP 128 / 55; Pulse 95; Resp 16; Pulse Ox 96% on R/A; jb4 20:30 BP 132 / 66; Pulse 98; Resp 18; Temp 97.6(O); Pulse Ox 98% on R/A; jb4 09:58 Body Mass Index 24.37 (74.84 kg, 175.26 cm) bp ED Course: 09:54 Patient arrived in ED. bp 09:55 Triage completed. bp 09:58 Arm band placed on. bp 10:02 Patient has correct armband on for positive identification. Bed in low position. Call bp light in reach. Side rails up X2. 10:04 Jeff Freeman PA is PHCP. jmm 10:04 Gus Casas MD is Attending Physician. jmm 10:14 Pedro Harding, RN is Primary Nurse. bp 10:20 Inserted saline lock: 22 gauge in left hand, using aseptic technique. Blood collected. bp 11:00 Patient moved to MRI via wheelchair. em2 11:05 MRI Lumbar Spine wo Con In Process Unspecified. EDMS 12:58 CT Abd/Pelvis - IV Contrast Only In Process Unspecified. EDMS 13:45 Chest Pa And Lat (2 Views) XRAY In Process Unspecified. EDMS 17:20 Josse Gustafson MD is Hospitalizing Provider. [facility] 17:46 EKG done, by splicing technician. reviewed by Jeff MOSQUEDA. 3 21:25 No provider procedures requiring assistance completed. Patient admitted, IV remains in jb4 place. 21:30 Primary Nurse role handed off by Pedro Harding, RN jb4 21:30 Ahmet López, RN is Primary Nurse. jb4 Administered Medications: 10:20 Drug: NS 0.9% 1000 ml Route: IV; Rate: 1 bolus; Site: left hand; bp 10:20 Drug: Zofran 4 mg Route: IVP; Site: left hand; bp 14:38 Follow up: Response: No adverse reaction; Nausea is decreased bp 10:20 Drug: morphine 2 mg Route: IVP; Site: left hand; bp 14:37 Follow up: Response: No adverse reaction; Pain is decreased bp 11:15 Drug: Promethazine 12.5 mg Route: IVP; Site: left hand; bp 14:37 Follow up: Response: No adverse reaction bp 16:35 Drug: GI Cocktail without - (Maalox Suspension 30 ml, Lidocaine Liquid 2 % 15 bp ml) Route: PO; 17:31 Follow up: Response: No adverse reaction bp 17:00 Drug: NS 0.9% 1000 ml Route: IV; Rate: 1 bolus; Site: left hand; bp 19:00 Follow up: Response: No adverse reaction; IV Status: Completed infusion; IV Intake: jb4 1000ml 17:35 Drug: Rocephin 1 grams Route: IV; Rate: calculated rate; Site: left hand; bp 17:44 Follow up: IV Status: Completed infusion; IV Intake: 20ml bp 18:59 Drug: Promethazine 25 mg Route: IVP; Site: left hand; bp 19:04 Follow up: Response: No adverse reaction bp Intake: 17:44 IV: 20ml; Total: 20ml. bp Outcome: 17:21 Decision to Hospitalize by Provider. [facility] 21:30 Patient left the ED. jb4 22:27 Admitted to Med/surg accompanied by tech, via wheelchair, room 228, with chart, Report jb4 called to Aniat 22:27 Condition: stable 22:27 Discharge instructions given to patient, Instructed on the need for admit, Demonstrated understanding of instructions. Signatures: Dispatcher [facility] EDJeff Li PA PA jmm Montes, Enrique em2 Ahmet López RN RN jb4 Pedro Harding RN RN bp Swetha Viramontes 3
--- NOTE | 2018-10-02 17:23 | EDPHYS ---
Physician Documentation [facility] Name: Jeremiah Morales Age: 73 yrs Sex: Male : 1945 Arrival Date: 10/02/2018 Time: 09:54 Bed 19 Private MD: ED Physician Gus Casas HPI: 10/02 10:15 This 73 yrs old Male presents to ER via EMS with complaints of jmm Nausea/Vomiting. 10:15 The patient presents to the emergency department with nausea, vomiting, diarrhea, jmm abdominal pain, of the right upper quadrant and left upper quadrant. Onset: The symptoms/episode began/occurred 1 day(s) ago. Possible causes: unknown. This is a 73 year old male with a history of dm, htn, that presents to the ED with complaints of vomiting and abdominal pain beginning yesterday. patient states the pain is similar to pain experienced prior to his cholecystectomy. . Historical: - Allergies: 09:58 Grass Pollen; bp - Home Meds: 09:58 aspirin 81 mg Oral chew 1 tab once daily [Active]; atorvastatin 10 mg Oral tab 1 tab bp once daily [Active]; carbamazepine 100 mg Oral chew 1 tab every 12 hours [Active]; carvedilol 12.5 mg Oral tab 1 tab 2 times per day [Active]; fludrocortisone 0.1 mg Oral tab 1 tab once daily [Active]; folic acid 1 mg Oral tab 1 tab once daily [Active]; glimepiride 2 mg Oral tab 1 tab twice a day [Active]; Januvia 100 mg Oral tab 1 tab once daily [Active]; magnesium oxide 400 mg Oral cap twice a day [Active]; trazodone 50 mg Oral tab PRN sleep [Active]; - PMHx: 09:58 Diabetes - NIDDM; Hypertension; 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 - Social history:: Smoking status: unknown. - Ebola Screening: : No symptoms or risks identified at this time. ROS: 10:15 Constitutional: Negative for fever, chills, and weight loss, Cardiovascular: Negative jmm for chest pain, palpitations, and edema, Respiratory: Negative for shortness of breath, cough, wheezing, and pleuritic chest pain. 10:15 MS/Extremity: Negative for injury and deformity, Neuro: Negative for headache, weakness, numbness, tingling, and seizure. 10:15 Abdomen/GI: Positive for abdominal pain, nausea and vomiting, diarrhea. 10:15 Back: Positive for pain with movement. 10:15 All other systems are negative. Exam: 10:15 Head/Face: atraumatic. Eyes: EOMI, no conjunctival erythema appreciated ENT: Moist jmm Mucus Membranes Neck: Trachea midline, Supple Chest/axilla: Normal chest wall appearance and motion. Cardiovascular: Regular rate and rhythm. No edema appreciated Respiratory: Normal respirations, no respiratory distress appreciated 10:15 Constitutional: The patient appears in no acute distress, alert, awake. 10:15 Abdomen/GI: Inspection: abdomen appears normal, Bowel sounds: normal, Palpation: soft, mild abdominal tenderness, in the right upper quadrant, left upper quadrant, right lower quadrant and left lower quadrant. 10:15 Musculoskeletal/extremity: ROM: intact in all extremities. 10:15 Skin: Appearance: Color: normal in color. 10:15 Neuro: Orientation: is normal, Mentation: is normal, Memory: is normal. 10:15 Psych: Behavior/mood is pleasant, cooperative. Vital Signs: 09:58 BP 164 / 96; Pulse 82; Resp 16; Temp 98; Pulse Ox 97% ; Weight 74.84 kg; Height 5 ft. 9 bp in. (175.26 cm); 10:43 BP 158 / 113; Pulse 95; Resp 16; Pulse Ox 99% ; bp 11:50 BP 111 / 55; Pulse 88; Resp 16; Pulse Ox 98% ; bp 13:14 BP 180 / 100; Pulse 51; Resp 14; Pulse Ox 100% ; bp 14:31 BP 168 / 98; Pulse 65; Resp 16; Pulse Ox 100% ; bp 15:57 BP 128 / 71; Pulse 48; Resp 14; Pulse Ox 97% ; bp 17:39 BP 100 / 56; Pulse 100; Resp 16; Pulse Ox 100% ; bp 18:47 BP 125 / 66; Pulse 86; Resp 16; Pulse Ox 97% ; bp 20:00 BP 128 / 55; Pulse 95; Resp 16; Pulse Ox 96% on R/A; jb4 20:30 BP 132 / 66; Pulse 98; Resp 18; Temp 97.6(O); Pulse Ox 98% on R/A; jb4 09:58 Body Mass Index 24.37 (74.84 kg, 175.26 cm) bp MDM: 10:04 Patient medically screened. [facility] 17:18 Data reviewed: vital signs, nurses notes. Counseling: I had a detailed discussion with pedro luis the patient and/or guardian regarding: the historical points, exam findings, and any diagnostic results supporting the discharge/admit diagnosis, lab results, radiology results, the need for further work-up and treatment in the hospital. ED course: I discussed the patient with Dr. Gustafson whom accepted admission. I discussed MRI with Dr. Mai whom did not have concern for abscess or cord compression. . 10/02 10:10 Order name: Basic Metabolic Panel; Complete Time: 11:21 [facility] 10/02 10:10 Order name: CBC with Diff; Complete Time: 12:49 [facility] 10/02 10:10 Order name: Creatinine for Radiology; Complete Time: 11:45 [facility] 10/02 10:10 Order name: Hepatic Function; Complete Time: 11:21 [facility] 10/02 10:10 Order name: Lipase; Complete Time: 11:21 [facility] 10/02 10:10 Order name: Troponin (emerg Dept Use Only); Complete Time: 11:21 [facility] 10/02 10:11 Order name: PT-INR; Complete Time: 10:57 [facility] 10/02 12:48 Order name: Manual Differential; Complete Time: 12:49 [facility] 10/02 13:12 Order name: Procalcitonin; Complete Time: 15:12 [facility] 10/02 13:12 Order name: Lactate; Complete Time: 15:25 [facility] 10/02 13:12 Order name: Blood Culture Adult (2) [facility] 10/02 16:10 Order name: Urine Dipstick--Ancillary (enter results); Complete Time: 16:42 bd 10/02 17:55 Order name: Basic Metabolic Panel [facility] 10/02 17:55 Order name: Basic Metabolic Panel [facility] 10/02 10:10 Order name: MRI Lumbar Spine wo Con; Complete Time: 12:18 [facility] 10/02 12:30 Order name: CT Abd/Pelvis - IV Contrast Only; Complete Time: 13:10 [facility] 10/02 13:24 Order name: Chest Pa And Lat (2 Views) XRAY; Complete Time: 13:53 [facility] 10/02 17:55 Order name: CBC with Automated Diff EDMS 10/02 17:55 Order name: CBC with Automated Diff EDMS 10/02 17:55 Order name: Lipase [facility] 10/02 17:55 Order name: Lipase [facility] 10/02 17:55 Order name: Liver (Hepatic) Function [facility] 10/02 17:55 Order name: Liver (Hepatic) Function [facility] 10/02 10:10 Order name: IV Saline Lock; Complete Time: 10:14 [facility] 10/02 10:10 Order name: Labs collected and sent; Complete Time: 11:00 [facility] 10/02 13:24 Order name: Urine Dipstick-Ancillary (obtain specimen); Complete Time: 14:49 [facility] 10/02 15:43 Order name: PO challenge; Complete Time: 15:53 [facility] 10/02 17:22 Order name: EKG - Nurse/Tech; Complete Time: 17:34 [facility] 10/02 17:55 Order name: NPO [facility] 10/02 18:10 Order name: EKG Electrocardiogram EDNJ Administered Medications: 10:20 Drug: NS 0.9% 1000 ml Route: IV; Rate: 1 bolus; Site: left hand; bp 10:20 Drug: Zofran 4 mg Route: IVP; Site: left hand; bp 14:38 Follow up: Response: No adverse reaction; Nausea is decreased bp 10:20 Drug: morphine 2 mg Route: IVP; Site: left hand; bp 14:37 Follow up: Response: No adverse reaction; Pain is decreased bp 11:15 Drug: Promethazine 12.5 mg Route: IVP; Site: left hand; bp 14:37 Follow up: Response: No adverse reaction bp 16:35 Drug: GI Cocktail without - (Maalox Suspension 30 ml, Lidocaine Liquid 2 % 15 bp ml) Route: PO; 17:31 Follow up: Response: No adverse reaction bp 17:00 Drug: NS 0.9% 1000 ml Route: IV; Rate: 1 bolus; Site: left hand; bp 19:00 Follow up: Response: No adverse reaction; IV Status: Completed infusion; IV Intake: jb4 1000ml 17:35 Drug: Rocephin 1 grams Route: IV; Rate: calculated rate; Site: left hand; bp 17:44 Follow up: IV Status: Completed infusion; IV Intake: 20ml bp 18:59 Drug: Promethazine 25 mg Route: IVP; Site: left hand; bp 19:04 Follow up: Response: No adverse reaction bp Disposition: 10/03 07:06 Co-signature as Attending Physician, Gus Casas MD I agree with the assessment and kdr plan of care. Disposition: 10/02/18 17:21 Hospitalization ordered by Josse Gustafson for Inpatient Admission. Preliminary diagnosis are Vomiting, Leukocystosis, Dehydration. - Bed requested for Telemetry/MedSurg (Inpatient). - Status is Inpatient Admission. jb4 - Condition is Stable. - Problem is new. - Symptoms are unchanged. UTI on Admission? No Signatures: Dispatcher [employer] EDMS Gus Casas MD MD kdr Jeff Freeman PA PA jmm Garcia, Cindy, RN RN cg Ahmet López, PIERO RN jb4 Pedro Harding, PIERO RN bp Corrections: (The following items were deleted from the chart) 10/02 20:35 17:21 Hospitalization Ordered by A Janay NAVARRO for Inpatient Admission. Preliminary cg diagnosis is Vomiting; Leukocystosis; Dehydration. Bed requested for Telemetry/MedSurg (Inpatient). Status is Inpatient Admission. Condition is Stable. Problem is new. Symptoms are unchanged. UTI on Admission? No. [facility] 21:30 20:35 10/02/2018 17:21 Hospitalization Ordered by A Janay NAVARRO for Inpatient Admission. jb4 Preliminary diagnosis is Vomiting; Leukocystosis; Dehydration. Bed requested for Telemetry/MedSurg (Inpatient). Status is Inpatient Admission. Condition is Stable. Problem is new. Symptoms are unchanged. UTI on Admission? No. cg
[2018-10-02] MEDS ORDERED: CEFTRIAXONE/SWI 1gm 1 GM/10 ML SYR ONE (17:42)
[2018-10-02] MEDS ORDERED: ACETAMINOPHEN 500 MG TAB PO PRN (17:52)
[2018-10-02] MEDS ORDERED: D5 0.45 NS 1,000 ML IV SCH (18:00)
[2018-10-02] MEDS ORDERED: CEFTRIAXONE/SWI 1gm 1 GM/10 ML SYR IVP SCH (21:00)
[2018-10-02] MEDS ORDERED: GLUCAGON 1 MG/VIAL IM PRN (21:56)
[2018-10-02] MEDS ORDERED: D50W 25 GM/50 ML SYRINGE IV PRN (21:56)
[2018-10-02] MEDS: HYDROCODONE/APAP 5/325 MG TAB PO PRN (22:42)
[2018-10-02] MEDS: ONDANSETRON 4 MG/2 ML VIAL IV PRN (22:42)
[2018-10-02] MEDS: NA CHLORIDE 0.9% 1,000 ML IV SCH (22:42)
[2018-10-03] MEDS: ONDANSETRON 4 MG/2 ML VIAL IV PRN ×3 (02:41→11:02)
--- NOTE | 2018-10-03 03:42 | HP ---
Date of Admission: 10/02/2018 Chief Complaint: Abdominal pain, nausea, vomiting. History Of Present Illness: Mr. Morales is a pleasant 73-year-old male patient, who started to have n ausea, vomiting, and diffuse abdominal pain as of yesterday. The patient came into emergency room to day. Last bowel movement was day before yesterday and denies any diarrhea. The patient reported ajk t he was vomiting with frequency almost every hour. He did notice some streaks of blood mixed with v omitus, but no reva hematemesis. After he was evaluated in the ER, I was contacted. The patient wa s admitted to the hospital. Denies any recent travel, no recent antibiotic use. Allergies: TO GRASS POLLEN. Medications: List reviewed. Review of Systems: GI: As mentioned above. All other systems reviewed and negative. Past Medical History: Significant for osteoarthritis at multiple sites; type 2 diabetes mellitus, un controlled; testicular hypofunction; hypertension; hyperlipidemia; hyperkalemia; hypomagnesemia; orth ostatic hypotension; benign prostatic hypertrophy. 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 Cholecystectomy. His back surgery was on 07/01/2018. Family History: Significant for bipolar disorder, COPD, coronary artery disease, and lung cancer. Social History: Positive for smoking and alcohol use. Physical Examination: Vital Signs: When he first came into emergency room, blood pressure 164/96, pulse 82, respiratory ra te 16, temperature 98, oxygen saturation 97%. Weight 74.84 kg, height 5 feet 9 inches. General: Awake, alert, oriented, not in distress. HEENT: Head atraumatic, normocephalic. Conjunctivae nonerythematous. Sclerae white. Mouth, no thr ush or edema noted. Ears/Nose, no mass, lesion, discharge noted. Neck: Supple. No JVD, lymph nodes, bruit, thyromegaly noted. Lungs: Bilateral good equal air entry. Clear to auscultation. No rhonchi. No rales. Heart: Normal heart sounds, no murmur or gallop. Abdomen: Very mild diffuse abdominal tenderness. Abdomen is soft. No distention. Bowel sounds nor moactive. No hepatosplenomegaly. No bruit. Extremities: No leg edema. No calf tenderness. Skin: No rash, ulcer, cellulitis. Lymphatics: No lymph node enlargement in neck, supraclavicular, infraclavicular region. Neuro: No focal neurological deficit. Chest: Unremarkable. External Genitalia: Deferred. Rectal: Deferred. Back: Has surgical scar from recent surgery. Scar is well healed. Normal looking skin in the surro unding region. No swelling. No tenderness. Laboratory Data: White count 19.2, hemoglobin 17.6, platelets 352, 89% neutrophils. Procalcitonin l ess than 0.05. Lactic acid level 1.8. Sodium 133, potassium 4.3, chloride 93, bicarb 25, BUN 15, cr eatinine 1.19, glucose 290. Liver function tests unremarkable. Troponin less than 0.02. Lipase 67. Urinalysis; 3+ ketones, 1+ blood, 2+ glucose, 2+ protein, nitrite negative, leukocyte esterase nega tive. MRI of spine shows moderate central canal narrowing caused by oblong hypointense structure along the dorsal epidural space at L4-5 level. Exact etiology and composition of this lesion is not clear; how ever, this is new since the preprocedure MRI from April 29, 2018. Calcified or cartilaginous fragmen t is possible. Suspect this fragment would be unusual in this location, but is not completely exclud ed either. Radiologist does not believe that this is indicating any abscess or infection. This is a ccording to discussion between radiologist and emergency room provider who had contacted me for the a dmission. The patient's CAT scan of abdomen with contrast shows no acute intraabdominal changes, mod erate thickening of the right adrenal gland noted, chronic in appearance. Chest x-ray; mild COPD. Impression: 1.Acute gastroenteritis. 2.Hematemesis. 3.Type 2 diabetes mellitus, uncontrolled. 4.Hypertension. 5.Hyperlipidemia. 6.Benign prostatic hypertrophy. 7.Osteoarthritis, multiple sites. Plan: Admit the patient to hospital for further evaluation and management of this problem. The erin ent is appropriate for inpatient and is expected to spend 2 midnights in the hospital. We will go ah ead and give IV fluid; empiric IV antibiotics, ceftriaxone; symptomatic treatment for nausea, vomitin g; repeat blood work tomorrow. Ambulation will be encouraged with use of physical therapy starting t omorrow. Home medications will be continued per order. We will give IV Protonix and we will repeat blood work tomorrow morning. DVT prophylaxis will be given per order. Details and plan of treatment discussed with the patient. I will see him tomorrow morning for followup. AGATHA/YUVAL Voice ID: [id number]
[2018-10-03] MEDS: HYDROCODONE/APAP 5/325 MG TAB PO PRN ×4 (03:49→22:20)
[2018-10-03 05:58] LABS: Absolute Lymphocytes (CBC) 1.3 K/uL (0.7-4.9); Basophils % 0.2 % (0-1.3); Hematocrit 50.4 % (39.6-49.0); Lymphocytes % 5.6 % (15.3-44.8); MPV 8.9 fL (7.6-11.3); RBC Red Blood Cell Count 5.78 M/uL (4.33-5.43)
[2018-10-03 06:03] LABS: Albumin 3.3 g/dL (3.4-5.0); Bilirubin Direct 0.1 mg/dL (0-0.2); Bilirubin Total 0.5 mg/dL (0.2-1.0); Potassium 4.1 mmol/L (3.5-5.1); Protein, Total 7.3 g/dL (6.4-8.2)
[2018-10-03] MEDS: INSULIN -REGULAR HUMAN 50 UNIT/0.5 ML ML SQ SCH ×4 (08:10→21:00)
[2018-10-03] MEDS: ENOXAPARIN 40 MG/0.4 ML SQ SCH (08:10)
[2018-10-03 08:18] LABS: Blood Morphology Comment NOT SEEN (NOT SEEN); Platelet Estimate ADEQ
[2018-10-03] MEDS ORDERED: CEFTRIAXONE/SWI 1gm 1 GM/10 ML SYR IVP SCH (09:00)
[2018-10-03] MEDS: NA CHLORIDE 0.9% 1,000 ML IV SCH ×3 (09:59→19:38)
[2018-10-03] MEDS: Levofloxacin500mg IV 500 MG/100 ML BAG IV SCH (09:59)
--- NOTE | 2018-10-03 11:37 | EKG ---
Test Date: 2018-10-02 Test Time: 17:42:13 Doper Operator: LLOYD MEASUREMENT RESULTS: Intervals: Rate: 96 FL: 142 QRSD: 84 QT: 374 QTc: 472 [place]: P: 68 FL: 142 QRS: 88 T: 61 INTERPRETIVE STATEMENTS: Sinus rhythm with frequent premature ventricular complexes Otherwise normal ECG Compared to ECG 11/27/2017 08:03:10 No significant changes Electronically Signed On 10-03-18 11:34:55 CDT by Lai Joy
[2018-10-03] MEDS: PROMETHAZINE 25 MG/ML VIAL IV PRN (19:39)
[2018-10-04] MEDS: PROMETHAZINE 25 MG/ML VIAL IV PRN ×5 (00:50→21:06)
--- NOTE | 2018-10-04 01:13 | PN ---
Date of Progress Note: 10/03/2018 Subjective: Patient was seen this morning for followup lying in bed, not in distress, had some nause a, vomiting after I saw him in emergency room last night. Denies any diarrhea. Still has some vague abdominal pain. Overall, abdominal pain is slightly better today than yesterday. No new complaints , problems reported. Objective: Vital Signs: Reviewed. HEENT: Unremarkable. Lungs: Clear to auscultation. Cardiac: Heart sounds normal. Abdomen: Soft, bowel sounds normoactive. No guarding, rigidity, distention, vague diffuse tendernes s present. No rebound tenderness. Extremities: No leg edema. Laboratory Data: Reviewed. White count is 23,000 compared to 19,000, yesterday. Impression: 1.Acute gastroenteritis. 2.Diabetes mellitus, type 2, uncontrolled. 3.Hypertension. Plan: We will go ahead and discontinue ceftriaxone and in place of that start the patient on Levaqui n and metronidazole. IV fluid will be given. We will continue nausea medication as needed. I will see him tomorrow for followup. We will repeat blood work tomorrow. AGATHA/MODL Voice ID: [id number] Report ID: [id number]
[2018-10-04] MEDS: NA CHLORIDE 0.9% 1,000 ML IV SCH ×3 (03:54→15:02)
[2018-10-04] MEDS: HYDROCODONE/APAP 5/325 MG TAB PO PRN (03:57)
[2018-10-04 06:19] LABS: Absolute Lymphocytes (CBC) 1.1 K/uL (0.7-4.9); Basophils % 0.5 % (0-1.3); Hematocrit 48.3 % (39.6-49.0); Lymphocytes % 4.8 % (15.3-44.8); MPV 8.3 fL (7.6-11.3); RBC Red Blood Cell Count 5.58 M/uL (4.33-5.43)
[2018-10-04 06:40] LABS: Magnesium 1.6 mg/dL (1.8-2.4); Potassium 4.1 mmol/L (3.5-5.1)
[2018-10-04] MEDS ORDERED: ESZOPICLONE 1 MG TAB PO PRN (07:07)
[2018-10-04] MEDS: MAGNESIUM OXIDE 400 MG TAB PO SCH ×2 (08:53→20:56)
[2018-10-04] MEDS: CARVEDILOL 12.5 MG TAB PO SCH ×2 (08:53→20:55)
[2018-10-04] MEDS: FAMOTIDINE 20 MG TAB PO SCH (08:54)
[2018-10-04] MEDS: Levofloxacin500mg IV 500 MG/100 ML BAG IV SCH (08:54)
[2018-10-04] MEDS: FOLIC ACID 1 MG TABLET PO SCH (08:54)
[2018-10-04] MEDS: GABAPENTIN 300 MG CAP PO SCH ×3 (08:54→20:56)
[2018-10-04] MEDS: ENOXAPARIN 40 MG/0.4 ML SQ SCH (08:54)
[2018-10-04] MEDS: INSULIN -REGULAR HUMAN 50 UNIT/0.5 ML ML SQ SCH ×4 (08:55→20:56)
[2018-10-04] MEDS ORDERED: SODIUM CHLORIDE 0.9% 10ML INJ IV PRN (09:38)
[2018-10-04] MEDS ORDERED: PANTOPRAZOLE 40 MG INJ IVP ONE (09:38)
[2018-10-04] MEDS ORDERED: MAGNESIUM SULFATE 1 gm IVPB 1 GM/100 ML BAG IV ONE (13:33)
[2018-10-04 16:28] LABS: Absolute Lymphocytes (CBC) 1.4 K/uL (0.7-4.9); Basophils % 0.6 % (0-1.3); Hematocrit 46.9 % (39.6-49.0); Lymphocytes % 7.9 % (15.3-44.8); RBC Red Blood Cell Count 5.39 M/uL (4.33-5.43)
[2018-10-04 16:46] LABS: Albumin 2.5 g/dL (3.4-5.0); Bilirubin Direct 0.2 mg/dL (0-0.2); Bilirubin Total 0.5 mg/dL (0.2-1.0); Potassium 3.8 mmol/L (3.5-5.1); Protein, Total 5.9 g/dL (6.4-8.2)
--- NOTE | 2018-10-04 17:25 | RAD REPORT ---
EXAM DESCRIPTION: CT - Head Brain Wo Cont - 10/04/2018 5:14 pm CLINICAL HISTORY: changes in mentation Headache, drowsiness COMPARISON: Head Brain Wo Cont dated 10/03/2016; HEAD BRAIN W O CONTRAST dated 05/07/2015 TECHNIQUE: All CT scans are performed using dose optimization technique as appropriate and may inclu de automated exposure control or mA/KV adjustment according to patient size. FINDINGS: No intracranial hemorrhage, hydrocephalus or extra-axial fluid collection.Moderate general ized brain atrophy is present with moderate periventricular and deep white matter chronic microvascul ar ischemic changes.No areas of brain edema or evidence of midline shift. The paranasal sinuses and mastoids are clear. The calvarium is intact. IMPRESSION: No acute intracranial abnormality.
[2018-10-04] MEDS ORDERED: POTASSIUM CL SA 10 MEQ TAB PO ONE (21:00)
--- NOTE | 2018-10-04 22:37 | PN ---
Date of Progress Note: 10/04/2018 Subjective: Patient was seen twice today, earlier this morning and this often note. When I saw him this morning, his was present at bedside. Patient denied any new complaints. Overall, he was l ooking better than yesterday, feeling better than yesterday. Still has nausea, which is controlled w ith current nausea medication. Abdominal pain is better. No vomiting. No diarrhea. His appetite h as started to show improvement as of this morning, even though his appetite is poor, but at least it has shown improvement this morning compared to yesterday. Objective: Vital Signs: Reviewed. HEENT: Unremarkable. Lungs: Clear to auscultation. Heart: Sounds normal. Abdomen: Soft. Bowel sounds normal. No guarding, rigidity, tenderness, or distention. Extremities: No leg edema. Back: Old surgical scar from back surgery. No evidence of any redness, swelling, tenderness. When I saw him this afternoon, no change in his exam except his mental status was different. He is a ble to answer simple questions, but unable to answer other questions. Appears weaker than this loyd dc. Follows simple commands. No focal neurological deficits noted and was present with him at bedside. Hospital Course: After I saw him this morning, it was recommended for patient to start ambulating wi th physical therapy and Physical Therapy consultation was requested. As therapies came by to help edward harris get out of bed to sit in the chair, he was extremely weak and with a lot of difficulty, he was able to transfer with assistance from bed to wheelchair and when therapist tried to stand him up, his leg s were very weak and that is the time they noted that the patient was getting confused and patient wa s brought back in the bed. I was contacted and we ordered some stat blood work and I came out to see him. I also ordered a stat CAT scan of head after I saw him. Laboratory Data: This morning, white count 22.5, hemoglobin 15.7, platelets 292. This afternoon, wh ite count 17.8, hemoglobin 15.2, platelets 260. This afternoon, sodium 135, potassium 3.8, chloride 100, bicarb 25, BUN 16, creatinine 1.06, glucose 217. Liver function tests unremarkable. Ammonia le som 17. Procalcitonin level less than 0.05. CAT scan of the head was negative for any acute intracr anial changes as per my discussion with the radiologist. Impression: 1.Acute gastroenteritis. 2.Toxic encephalopathy. 3.Type 2 diabetes mellitus. 4.Hypertension. Plan: Patient's altered mental status that he had this afternoon is likely due to combination of the current infectious etiology and possibility of low blood pressure, transient, during the transfer wh ile he was getting transferred from bed to wheelchair. Hemodynamically, he is stable. He is respond ing well to current antibiotics with improvement in his WBC count as noted. At this point, no need f or any further intervention except I have advised nursing staff to go ahead and put bed check and adv ised the patient not to get out of his bed without any assistance and nurse was advised that the erin ent should use urinal instead of trying to go to the bathroom, and I will see him tomorrow for follow up. Continue current IV fluid. Depending on his condition tomorrow, we will see if we can attempt t o ambulate with physical therapy again tomorrow or not. AGATHA/MODL Voice ID: [id number] Report ID: [id number]
[2018-10-05] MEDS: NA CHLORIDE 0.9% 1,000 ML IV SCH ×4 (01:25→08:22)
[2018-10-05 06:53] LABS: Absolute Lymphocytes (CBC) 1.4 K/uL (0.7-4.9); Basophils % 0.3 % (0-1.3); Hematocrit 43.4 % (39.6-49.0); Lymphocytes % 9.2 % (15.3-44.8); MPV 8.3 fL (7.6-11.3); RBC Red Blood Cell Count 4.97 M/uL (4.33-5.43)
[2018-10-05 07:12] LABS: BUN Blood Urea Nitrogen 11 mg/dL (7-18); Bicarbonate 24 mmol/L (21-32); Glucose Level 179 mg/dL (74-106); Potassium 3.8 mmol/L (3.5-5.1); Sodium Level 137 mmol/L (136-145)
[2018-10-05] MEDS: INSULIN -REGULAR HUMAN 50 UNIT/0.5 ML ML SQ SCH ×4 (07:30→19:54)
[2018-10-05] MEDS: FOLIC ACID 1 MG TABLET PO SCH (07:56)
[2018-10-05] MEDS: Levofloxacin500mg IV 500 MG/100 ML BAG IV SCH (07:56)
[2018-10-05] MEDS: ENOXAPARIN 40 MG/0.4 ML SQ SCH (07:56)
[2018-10-05] MEDS: GABAPENTIN 300 MG CAP PO SCH ×3 (07:57→20:50)
[2018-10-05] MEDS: CARVEDILOL 12.5 MG TAB PO SCH ×2 (07:58→20:50)
[2018-10-05] MEDS: FAMOTIDINE 20 MG TAB PO SCH (07:58)
[2018-10-05] MEDS: MAGNESIUM OXIDE 400 MG TAB PO SCH ×2 (07:58→20:50)
[2018-10-05] MEDS: PANTOPRAZOLE 40 MG INJ IVP SCH (07:58)
[2018-10-05] MEDS: HYDROCODONE/APAP 5/325 MG TAB PO PRN (08:00)
[2018-10-05] MEDS ORDERED: POTASSIUM CL SA 10 MEQ TAB PO ONE (09:00)
[2018-10-05] MEDS ORDERED: MAGNESIUM HYDROXIDE 8% 30 ML PO PRN (09:52)
[2018-10-05] MEDS: PROMETHAZINE 25 MG/ML VIAL IV PRN (12:14)
--- NOTE | 2018-10-05 14:53 | PN ---
Date of Progress Note: 10/05/2018 Subjective: Patient was seen this morning for followup. No new complaints or problems reported by p gunnarlianna. His was present with him at bedside and patient and his they both reported he is b ack to his normal baseline. All the problems from yesterday has resolved. This morning, his appetit e is back to normal. He was able to feed himself yesterday evening. He was not able to feed himself at all. No more confusion. Has still some nausea, but no vomiting. Objective: Vital Signs: Reviewed. HEENT: Examination unremarkable. Lungs: Clear to auscultation. Heart: Sounds normal. Abdomen: Soft. Bowel sounds normal. No guarding, rigidity, tenderness, or distention. Extremity Exam: No leg edema. Laboratory Data: White count 15.4, hemoglobin 14.4, platelets 240. Sodium 137, potassium 3.8, chlor yissel 105, bicarb 24, BUN 11, glucose 179, magnesium 2. Impression: 1.Acute gastroenteritis. 2.Toxic encephalopathy, resolved. 3.Diabetes mellitus. Plan: We will go ahead and continue current IV antibiotic. IV fluid will be reduced. Ambulation was encouraged. We will repeat blood work tomorrow and our plan is to possibly discharge him to go home tomorrow depending on his condition. I had a long discussion with the patient and his and unde rstand that the patient has some periods of confusion at home from time to time with some short-term memory problem. He keeps on asking same questions sometimes multiple times throughout the day. He a lso stays very inactive, stays in bed most of the time as reported and I did advice him to exerc ise on his stationary bicycle 30 to 40 minutes a day on a daily basis and also advised him not to sta y in bed all day and to try to stay active. While here in the hospital in bed, leg raising exercise is advised, ambulation was advised and I have also discussed with him about importance of getting radha luation done by neurologist for dementia problem and he has seen Dr. Richards and he will schedule hi s appointment on outpatient basis. AGATHA/MODL Voice ID: [id number] Report ID: [id number]
[2018-10-05] MEDS ORDERED: MAGNES/ALUMIN/SIMET 30ML UCUP PO PRN (17:20)
[2018-10-05 21:38] VITALS: BMI 24.5
[2018-10-06] MEDS: PROMETHAZINE 25 MG/ML VIAL IV PRN (03:39)
[2018-10-06] MEDS: NA CHLORIDE 0.9% 1,000 ML IV SCH (05:00)
[2018-10-06 06:51] LABS: BUN Blood Urea Nitrogen 10 mg/dL (7-18); Bicarbonate 25 mmol/L (21-32); Glucose Level 168 mg/dL (74-106); Magnesium 1.8 mg/dL (1.8-2.4); Potassium 3.6 mmol/L (3.5-5.1); Sodium Level 135 mmol/L (136-145)
[2018-10-06 07:22] LABS: Absolute Lymphocytes (CBC) 1.6 K/uL (0.7-4.9); Basophils % 0.4 % (0-1.3); Hematocrit 45.8 % (39.6-49.0); Lymphocytes % 14.4 % (15.3-44.8); MPV 8.7 fL (7.6-11.3)
[2018-10-06] MEDS: INSULIN -REGULAR HUMAN 50 UNIT/0.5 ML ML SQ SCH (07:30)
[2018-10-06] MEDS: Levofloxacin500mg IV 500 MG/100 ML BAG IV SCH (08:23)
[2018-10-06] MEDS: PANTOPRAZOLE 40 MG INJ IVP SCH (08:24)
[2018-10-06] MEDS: GABAPENTIN 300 MG CAP PO SCH (08:24)
[2018-10-06] MEDS: ENOXAPARIN 40 MG/0.4 ML SQ SCH (08:24)
[2018-10-06] MEDS: FOLIC ACID 1 MG TABLET PO SCH (08:25)
[2018-10-06] MEDS: MAGNESIUM OXIDE 400 MG TAB PO SCH (08:25)
[2018-10-06] MEDS: FAMOTIDINE 20 MG TAB PO SCH (08:25)
[2018-10-06] MEDS: CARVEDILOL 12.5 MG TAB PO SCH (08:25)
[2018-10-06 08:32] VITALS: BP 170/93; TEMP 97.9
[2018-10-06 09:56] VITALS: O2SAT 97
[2018-10-06] MEDS ORDERED: POTASSIUM CL SA 10 MEQ TAB PO ONE (11:00)
--- NOTE | 2018-10-06 11:44 | DS ---
Date of Discharge: 10/06/2018 Physical Examination: HEENT: Examination unremarkable. Lungs: Clear to auscultation. Heart: Sounds normal. Abdomen: Soft. Bowel sounds normal. No guarding, rigidity, tenderness, or distention. Extremities: No leg edema. Laboratory Data: Upon admission on 10/02/2018, white count 19.2, hemoglobin 17.6, platelets 352. Hi emma white count was on 10/03/2018, it was 23.2, hemoglobin 16.2, platelets 328. Last white count t estefany 11, hemoglobin 15, platelets 247. Last chemistry today: Sodium 135, potassium 3.6, chloride 10 0, bicarb 25, BUN 10, creatinine 0.84, glucose 168, magnesium 1.8. Discharge Medications And Instructions: 1.Continue all prior home medications. 2.Follow up at my office a week after next. 3.Follow up with Dr. Weir for EGD and Dr. Richards for dementia evaluation in 1 to 2 weeks. 4.Follow up with Dr. Hardin with copy of MRI film and MRI report which was given to patient. 5.Do not take any Aleve or Motrin type of medications. 6.Do not drink any alcohol. 7.Take following new medications: Protonix 40 mg 1 tablet by mouth daily, [address], sucralfate 1 g 3 times a day, take it 15 minutes before meal. 8.Levaquin 500 mg p.o. daily for 1 week. 9.Metronidazole 500 mg 3 times a day for 1 week. 10.Promethazine 25 mg p.o. 4 times a day as needed for nausea, vomiting. Hospital Course: This is a 73-year-old pleasant male patient, admitted to the hospital with abdomina l pain, nausea, vomiting. Please see dictated H and P for more information. After patient was evalu ated in the emergency room, he was admitted to the hospital. CAT scan of abdomen with contrast showe d no acute intraabdominal changes, moderate thickening of the right adrenal gland noted, chronic in a ppearance. Chest x-ray showed mild COPD. MRI of the lumbar spine showed moderate central canal narr owing caused by oblong hypointense structure along the dorsal epidural space at L4-5 level, exact ino ology and composition of this lesion is not clear, however, this is new since preprocedure MRI from [facility] 2018. The calcified or cartilaginous fragment is possible. I suspect this fragment would b e unusual in this location, but it is not completely excluded either and radiologist does not believe that this is indicating any abscess or infection. Final Diagnoses: 1.Acute gastroenteritis. 2.Hematemesis, resolved. 3.Gastroesophageal reflux disease with esophagitis. 4.Type 2 diabetes mellitus, uncontrolled. 5.Hypertension. 6.Hyperlipidemia. 7.Benign prostatic hypertrophy. 8.Osteoarthritis, multiple sites. 9.Chronic back pain. 10.Memory loss. Hospital Course: 73-year-old patient admitted to the hospital with abdominal pain, nausea, vomiting. Please see dictated H and P for more information. After patient was evaluated in the emergency lennox m, he was admitted to the hospital with acute gastroenteritis. IV fluids and IV antibiotic were star ariel. Initially, he was started on ceftriaxone. White count was 19,000 when he came in. Day after a dmission, white count went up to 23,000, so ceftriaxone was discontinued and we started him on Levaqu in and metronidazole and he responded well to this antibiotic and white count started getting better. Over the period of this hospitalization his condition started to improve. Nausea improved. He did not have any further episode of vomiting or hematemesis, but he still continued to require nausea me dication, and he did not respond as well to Zofran, so we started him on Phenergan and responded well to that. Abdominal pain problem has resolved. His appetite is not good, but has improved. He star ariel to have complaints of pain with swallowing food or liquids and it is a sharp burning type of pain in the midchest area that starts with eating. Along with famotidine, we started him on IV Protonix and Maalox and he is still continues to have this problem, so upon discharge today we will go ahead a nd add sucralfate and I have asked him to follow up with his production engineer track, Dr. Weir for conside ration of EGD. I have also given him copy of MRI results and MRI film that was done during this [facility] room visit and he will schedule his appointment to see his back specialist, Dr. Hardin. He has chronic back pain that has not changed since his surgery. He is having some memory problem as repor ariel by him and his and he has seen Dr. Richards in the past and I have advised him to follow up with him for further evaluation for this memory problem as he may have some beginning of underlying d ementia. Overall, patient's condition has improved. Medically, he is stable for discharge with abov e-mentioned medications and instructions. AGATHA/MODL Voice ID: [id number] Report ID: [id number]
== END 2018-10-06 10:44 | disposition home or self-care (01) | DRG 391 ==
LOC: ER 09:51 → ERHOLD 17:51 → 2ND 21:03
PROVIDERS: ADMIT Internal Medicine; ATTEND Internal Medicine
DX: K52.9 Noninfective gastroenteritis and colitis, unspecified (principal); G92 Toxic encephalopathy; K92.0 Hematemesis; K21.0 Gastro-esophageal reflux disease with esophagitis; E11.65 Type 2 diabetes mellitus with hyperglycemia; I10 Essential (primary) hypertension; E78.5 Hyperlipidemia, unspecified; N40.0 Benign prostatic hyperplasia without lower urinary tract symptoms; M19.90 Unspecified osteoarthritis, unspecified site; M54.9 Dorsalgia, unspecified; R41.3 Other amnesia
CPT/HCPCS: 36415; 70450; 71046; 72148; 74177; 80048; 80076; 81003; 82140; 82962; 83605; 83690; 83735; 84145; 84484; 85025; 85610; 87040; 93005; 96361; 96374; 96375; 97112; 97116; 97161; 97530; 99285; C9113; J0696; J1650; J2270; J2405; J2550; J3475; J7030; Q9967

== ENCOUNTER 2018-10-06 23:10 | Emergency (ER) | payer OTHER, MEDICARE ==
[2018-10-07 00:16] LABS: Absolute Lymphocytes (CBC) 1.7 K/uL (0.7-4.9); Basophils % 0.5 % (0-1.3); Hematocrit 41.6 % (39.6-49.0); Lymphocytes % 17.4 % (15.3-44.8); MPV 8.8 fL (7.6-11.3); RBC Red Blood Cell Count 4.77 M/uL (4.33-5.43)
[2018-10-07 00:33] LABS: Albumin 2.4 g/dL (3.4-5.0); Bilirubin Total 0.3 mg/dL (0.2-1.0); Potassium 3.7 mmol/L (3.5-5.1); Protein, Total 5.5 g/dL (6.4-8.2)
[2018-10-07] MEDS ORDERED: NA CHLORIDE 0.9% 1,000 ML ONE (00:50)
--- NOTE | 2018-10-07 01:51 | ER ---
Nurse's Notes [facility] Name: Jeremiah Morales Age: 73 yrs Sex: Male : 1945 Arrival Date: 10/06/2018 Time: 23:11 Bed 26 Private MD: Diagnosis: Dehydration;Weakness Presentation: 10/06 23:16 Presenting complaint: EMS states: called for EMS because patient is too weak. he rv was out in the porch all day. does not eat or drink much because of nausea. patient just got discharged today for Gastroenteritis. there are also episode that the patient was confused. patient stated that he took Ackley 2 pills together with sleep aid at 1944. Transition of care: patient was not received from another setting of care. Onset of symptoms was October 06, 2018 at 12:00. Risk Assessment: Do you want to hurt yourself or someone else? Patient reports no desire to harm self or others. Initial Sepsis Screen: Does the patient meet any 2 criteria? No. Patient's initial sepsis screen is negative. Does the patient have a suspected source of infection? No. Patient's initial sepsis screen is negative. Care prior to arrival: None. 23:16 Method Of Arrival: EMS: [facility] rv 23:16 Acuity: HEATHER 3 rv Historical: - Allergies: 23:22 Grass Pollen; rv - Home Meds: 23:22 aspirin 81 mg Oral chew 1 tab once daily [Active]; atorvastatin 10 mg Oral tab 1 tab rv once daily [Active]; carbamazepine 100 mg Oral chew 1 tab every 12 hours [Active]; carvedilol 12.5 mg Oral tab 1 tab 2 times per day [Active]; fludrocortisone 0.1 mg Oral tab 1 tab once daily [Active]; folic acid 1 mg Oral tab 1 tab once daily [Active]; glimepiride 2 mg Oral tab 1 tab twice a day [Active]; Januvia 100 mg Oral tab 1 tab once daily [Active]; magnesium oxide 400 mg Oral cap twice a day [Active]; trazodone 50 mg Oral tab PRN sleep [Active]; - PMHx: 23:22 Diabetes - NIDDM; Hypertension; 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 - Social history:: Smoking status: Patient uses tobacco products, smokes one pack cigarettes per day. - Ebola Screening: : No symptoms or risks identified at this time. Screenin:25 Abuse screen: Denies threats or abuse. Denies injuries from another. Nutritional rv screening: No deficits noted. Tuberculosis screening: No symptoms or risk factors identified. Fall Risk None identified. Assessment: 23:22 General: Appears in no apparent distress. comfortable, Behavior is cooperative, drowsy. rv Pain: Denies pain. Neuro: Level of Consciousness is awake, obeys commands, drowsy. Oriented to person, place, time, situation. Cardiovascular: Patient's skin is warm and dry. Rhythm is sinus rhythm with unifocal PVCs. Respiratory: Airway is patent. GI: No signs and/or symptoms were reported involving the gastrointestinal system. : No signs and/or symptoms were reported regarding the genitourinary system. EENT: No signs and/or symptoms were reported regarding the EENT system. Derm: Skin is intact. Musculoskeletal: No signs and/or symptoms reported regarding the musculoskeletal system. Vital Signs: 23:12 BP 97 / 56; Pulse 80; Resp 16; Temp 98.5(O); Pulse Ox 99% on R/A; lt1 10/07 00:00 BP 112 / 65; Pulse 66; Resp 16; Pulse Ox 98% on R/A; rv 00:30 BP 115 / 68; Pulse 69; Resp 15; Pulse Ox 98% on R/A; rv 00:47 BP 106 / 49 Sitting; Pulse 75; Resp 16; Pulse Ox 98% on R/A; rv 00:48 BP 92 / 57 Standing; Pulse 80; Resp 16; Pulse Ox 98% ; rv 01:58 BP 115 / 64; Pulse 79; Resp 15; Pulse Ox 98% on R/A; rv 00:47 COMPLAINS OF DIZZINESS rv 00:48 ABLE TO STAND UP AND DID NOT COMPLAIN OF DIZZINESS rv ED Course: 10/06 23:11 Patient arrived in ED. ds1 23:12 Perez Rivera, RN is Primary Nurse. rv 23:19 Triage completed. rv 23:25 Maintain EMS IV. Dressing intact. Good blood return noted. Site clean \T\ dry. Gauge \T\ rv site: G18 RIGHT FA. 23:25 Patient has correct armband on for positive identification. Placed in gown. Bed in low rv position. Call light in reach. Side rails up X 1. Adult w/ patient. youth nutritional monitor on. Pulse ox on. NIBP on. 23:26 Patient placed in the treatment room, on a stretcher, on youth nutritional monitor, on pulse rv oximetry, Patient notified of wait time. Arm band placed on right wrist. EKG completed in triage. Results shown to MD. 23:29 Minh Kulkarni NP is PHCP. pm1 23:29 Marcelo Julian MD is Attending Physician. pm1 08 01:58 No provider procedures requiring assistance completed. IV discontinued, intact, rv bleeding controlled, No redness/swelling at site. Pressure dressing applied. Administered Medications: 10/06 23:49 Drug: NS 0.9% 1000 ml Route: IV; Rate: 1000 ml; Site: right forearm; rv 10/07 00:41 Follow up: IV Status: Completed infusion; IV Intake: 1000ml rv Intake: 00:41 IV: 1000ml; Total: 1000ml. rv Outcome: 01:44 Discharge ordered by MD. pm1 01:58 Discharged to home ambulatory, with family. rv 01:58 Condition: improved 01:58 Discharge instructions given to patient, family, Instructed on discharge instructions, follow up and referral plans. Demonstrated understanding of instructions, follow-up care. 01:58 Patient left the ED. rv Signatures: Kim Sen ds1 Minh Kulkarni NP CNC MAINTENANCE TECHNICIAN pm1 Perez Rivera RN RN rv Nani Severino lt1
--- NOTE | 2018-10-07 01:52 | EDPHYS ---
Physician Documentation [facility] Name: Jeremiah Morales Age: 73 yrs Sex: Male : 1945 Arrival Date: 10/06/2018 Time: 23:11 Bed 26 Private MD: ED Physician Marcelo Julian HPI: 10/07 00:00 This 73 yrs old Male presents to ER via EMS with complaints of Weakness, pm1 Nausea. 00:00 The patient presents to the emergency department with weakness of the entire body, pm1 generalized weakness. Onset: The symptoms/episode began/occurred last night. Context: occurred at home, occurred while the patient was trying to get up from chair on the porch. Patient took two Norcos and a sleep aid at 1944 prior to going out on to the porch. had difficulty getting him up from the chair. Associated signs and symptoms: Pertinent positives: nausea, Pertinent negatives: fever, focal deficits, vomiting. Patient's baseline: Neuro: alert and fully oriented, Motor: no deficits, Ambulation: walks with assist only, uses walker, Speech: normal. The patient has been recently been admitted at [facility], by Dr. Gustafson, was discharged yesterday, for similar complaints. Historical: - Allergies: 10/06 23:22 Grass Pollen; rv - Home Meds: 23:22 aspirin 81 mg Oral chew 1 tab once daily [Active]; atorvastatin 10 mg Oral tab 1 tab rv once daily [Active]; carbamazepine 100 mg Oral chew 1 tab every 12 hours [Active]; carvedilol 12.5 mg Oral tab 1 tab 2 times per day [Active]; fludrocortisone 0.1 mg Oral tab 1 tab once daily [Active]; folic acid 1 mg Oral tab 1 tab once daily [Active]; glimepiride 2 mg Oral tab 1 tab twice a day [Active]; Januvia 100 mg Oral tab 1 tab once daily [Active]; magnesium oxide 400 mg Oral cap twice a day [Active]; trazodone 50 mg Oral tab PRN sleep [Active]; - PMHx: 23:22 Diabetes - NIDDM; Hypertension; 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 - Social history:: Smoking status: Patient uses tobacco products, smokes one pack cigarettes per day. - Ebola Screening: : No symptoms or risks identified at this time. ROS: 10/07 00:00 Constitutional: Negative for fever, chills, and weight loss, Eyes: Negative for injury, pm1 pain, redness, and discharge, ENT: Negative for injury, pain, and discharge, Neck: Negative for injury, pain, and swelling, Cardiovascular: Negative for chest pain, palpitations, and edema, Respiratory: Negative for shortness of breath, cough, wheezing, and pleuritic chest pain, Back: Negative for injury and pain, : Negative for injury, bleeding, discharge, and swelling, MS/Extremity: Negative for injury and deformity, Skin: Negative for injury, rash, and discoloration. Abdomen/GI: Positive for nausea, Negative for abdominal pain, vomiting, diarrhea, constipation. Neuro: Positive for weakness, generalized. Exam: 00:00 Constitutional: This is a well developed, well nourished patient who is awake, alert, pm1 and in no acute distress. Head/Face: Normocephalic, atraumatic. Eyes: Pupils equal round and reactive to light, extra-ocular motions intact. Lids and lashes normal. Conjunctiva and sclera are non-icteric and not injected. Cornea within normal limits. Periorbital areas with no swelling, redness, or edema. ENT: Nares patent. No nasal discharge, no septal abnormalities noted. Tympanic membranes are normal and external auditory canals are clear. Oropharynx with no redness, swelling, or masses, exudates, or evidence of obstruction, uvula midline. Mucous membranes moist. Neck: Trachea midline, no thyromegaly or masses palpated, and no cervical lymphadenopathy. Supple, full range of motion without nuchal rigidity, or vertebral point tenderness. No Meningismus. Chest/axilla: Normal chest wall appearance and motion. Nontender with no deformity. No lesions are appreciated. Cardiovascular: Regular rate and rhythm with a normal S1 and S2. No gallops, murmurs, or rubs. Normal PMI, no JVD. No pulse deficits. Respiratory: Lungs have equal breath sounds bilaterally, clear to auscultation and percussion. No rales, rhonchi or wheezes noted. No increased work of breathing, no retractions or nasal flaring. Abdomen/GI: Soft, non-tender, with normal bowel sounds. No distension or tympany. No guarding or rebound. No evidence of tenderness throughout. Back: No spinal tenderness. No costovertebral tenderness. Full range of motion. Skin: Warm, dry with normal turgor. Normal color with no rashes, no lesions, and no evidence of cellulitis. MS/ Extremity: Pulses equal, no cyanosis. Neurovascular intact. Full, normal range of motion. 00:00 Neuro: Orientation: is normal, Mentation: is normal, Motor: is normal, moves all fours, Sensation: is normal, no obvious gross deficits. Vital Signs: 10/06 23:12 BP 97 / 56; Pulse 80; Resp 16; Temp 98.5(O); Pulse Ox 99% on R/A; lt1 10/07 00:00 BP 112 / 65; Pulse 66; Resp 16; Pulse Ox 98% on R/A; rv 00:30 BP 115 / 68; Pulse 69; Resp 15; Pulse Ox 98% on R/A; rv 00:47 BP 106 / 49 Sitting; Pulse 75; Resp 16; Pulse Ox 98% on R/A; rv 00:48 BP 92 / 57 Standing; Pulse 80; Resp 16; Pulse Ox 98% ; rv 01:58 BP 115 / 64; Pulse 79; Resp 15; Pulse Ox 98% on R/A; rv 00:47 COMPLAINS OF DIZZINESS rv 00:48 ABLE TO STAND UP AND DID NOT COMPLAIN OF DIZZINESS rv MDM: 10/06 23:29 Patient medically screened. pm1 10/07 01:44 Data reviewed: vital signs. Data interpreted: Pulse oximetry: on room air is 98 %. pm1 Interpretation: normal. Counseling: I had a detailed discussion with the patient and/or guardian regarding: the historical points, exam findings, and any diagnostic results supporting the discharge/admit diagnosis, lab results, the need for outpatient follow up, to return to the emergency department if symptoms worsen or persist or if there are any questions or concerns that arise at home. 10/06 23:44 Order name: CBC with Diff pm1 10/06 23:44 Order name: CMP; Complete Time: 00:37 pm1 10/06 23:44 Order name: ETOH Level; Complete Time: 00:37 pm1 10/06 23:44 Order name: Orthostatics; Complete Time: 00:41 pm1 10/06 23:44 Order name: IV Saline Lock; Complete Time: 23:49 pm1 Administered Medications: 10/06 23:49 Drug: NS 0.9% 1000 ml Route: IV; Rate: 1000 ml; Site: right forearm; rv 10/07 00:41 Follow up: IV Status: Completed infusion; IV Intake: 1000ml rv Disposition: 10:53 Co-signature as Attending Physician, Marcelo Julian MD I agree with the assessment and 4 plan of care. Disposition: 10/07/18 01:44 Discharged to Home. Impression: Dehydration, Weakness. - Condition is Stable. - Discharge Instructions: Dehydration, Adult, Weakness, Rehydration, Adult. - Medication Reconciliation Form, Thank You Letter, Antibiotic Education, Prescription Opioid Use form. - Follow up: Emergency Department; When: As needed; Reason: Worsening of condition. Follow up: Private Physician; When: 2 - 3 days; Reason: Recheck today's complaints, Continuance of care, Re-evaluation by your physician. - Problem is new. - Symptoms have improved. Signatures: Dispatcher [employer] EDMS Minh Kulkarni, ACID CHANGER ACID CHANGER pm1 Marcelo Julian MD MD tw4 Perez Rivera RN RN rv Corrections: (The following items were deleted from the chart) 01:58 01:44 10/07/2018 01:44 Discharged to Home. Impression: Dehydration; Weakness. Condition rv is Stable. Forms are Medication Reconciliation Form, Thank You Letter, Antibiotic Education, Prescription Opioid Use. Follow up: Emergency Department; When: As needed; Reason: Worsening of condition. Follow up: Private Physician; When: 2 - 3 days; Reason: Recheck today's complaints, Continuance of care, Re-evaluation by your physician. Problem is new. Symptoms have improved. pm1
[2018-10-07 03:00] VITALS: TEMP 98.5
[2018-10-07 03:24] VITALS: O2SAT 98
[2018-10-07 03:28] VITALS: BP 115/64
--- NOTE | 2018-10-07 09:59 | EKG ---
Test Date: 2018-10-06 Test Time: 23:19:40 Haulage Engine Operator: JESUST MEASUREMENT RESULTS: Intervals: Rate: 78 WA: 146 QRSD: 88 QT: 418 QTc: 476 Portal: P: 45 WA: 146 QRS: 68 T: 38 INTERPRETIVE STATEMENTS: Normal sinus rhythm Normal ECG Compared to ECG 10/02/2018 17:42:13 Ventricular premature complex(es) no longer present Electronically Signed On 10-07-18 09:58:11 CDT by Drew Sanz
== END 2018-10-07 01:58 | disposition home or self-care (01) ==
LOC: ER 23:10
DX: E86.0 Dehydration (principal); I10 Essential (primary) hypertension; E11.9 Type 2 diabetes mellitus without complications; F17.210 Nicotine dependence, cigarettes, uncomplicated; Z79.82 Long term (current) use of aspirin; Z91.048 Other nonmedicinal substance allergy status
CPT/HCPCS: 93005; 85025; 36415; 80320; 80053; J7030; 96360; 99284

== ENCOUNTER 2019-07-17 12:49 | Emergency (ER) | payer OTHER, MEDICARE ==
--- OUTSIDE RECORDS SUMMARY | 2019-07-17 14:15 | XMS REPORT | Clinical Summary ---
:1945 Author Organization [facility] Address [address] [place] [address] Care Team Providers Name Role Phone Zoe Gustafson MD Primary Care Provider Allergies Active Allergy Reactions Severity Noted Date Comments No Known Drug Allergies 07/20/2015 Medications Medication Sig Dispensed Refills Start Date End Date Status amLODIPine (NORVASC) 5 Take 2.5 mg by 0 Active MG tablet mouth daily. atorvastatin (LIPITOR) Take 1 tablet by 0 Active 10 MG tablet mouth daily. blood sugar diagnostic USE DIRECTED 0 Active strips (FREESTYLE LITE BID STRIPS) strip test strips metFORMIN (GLUCOPHAGE) Take 500 mg by 0 Active 500 mg tablet mouth 2 (two) times a day with meals. 2 tablet twice daily nateglinide (STARLIX) Take 120 mg by 0 Active 120 MG tablet mouth 3 (three) times a day before meals. insulin detemir U-100 Inject 35 Units 0 Active (LEVEMIR) 100 unit/mL under the skin injection nightly. sitaGLIPtin (JANUVIA) Take 50 mg by 0 Active 50 MG tablet mouth daily. traMADol (ULTRAM) 50 Take 50 mg by 0 Active mg tablet mouth as needed for moderate pain. folic acid (FOLVITE) 1 Take 1 tablet(s) 0 Active MG tablet every day by oral route for 90 days. magnesium oxide TK 1 T PO QID. 0 Active (MAGOX) 400 mg tablet aspirin (ECOTRIN) 81 Take 81 mg by 0 Active MG enteric coated mouth daily. tablet CINNAMON BARK Take 1 tablet by 0 Active (CINNAMON ORAL) mouth 2 (two) times a day. Cinnamon + chrome 2000mg omeprazole (PriLOSEC) Take 40 mg by 0 Active 40 MG capsule mouth daily. meclizine (ANTIVERT) meclizine 25 mg 0 Active 25 mg tablet tablet eszopiclone (LUNESTA) Take 3 mg by mouth 0 Active 3 mg tablet as needed for sleep. Take immediately before bedtime testosterone enanthate Inject into the 0 Active (DELATESTRYL) 200 shoulder, thigh, mg/mL injection or buttocks every 30 (thirty) days. 2 mL monthly cyanocobalamin 1,000 Inject 1,000 mcg 0 Active mcg/mL injection into the shoulder, thigh, or buttocks every 30 (thirty) days. 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
[2019-07-17] MEDS ORDERED: HYDROCODONE/APAP 7.5/325 MG TAB ONE (15:42)
--- NOTE | 2019-07-17 16:45 | RAD REPORT ---
EXAM DESCRIPTION: RAD - Ribs Left - 07/17/2019 4:01 pm CLINICAL HISTORY: Fall, left-sided rib pain, history of multiple falls COMPARISON: None. FINDINGS: No acute or subacute rib fractures identifiable. No aggressive rib lesion. No underlying p neumothorax, effusion, infiltrate or pulmonary contusion. IMPRESSION: No rib fractures confirmed. No acute pleural or parenchymal process.
--- NOTE | 2019-07-17 16:46 | RAD REPORT ---
EXAM DESCRIPTION: RAD - Chest Single View - 07/17/2019 4:03 pm CLINICAL HISTORY: CHEST PAIN, history of recent falls and multiple prior falls COMPARISON: Two view chest September 2018 TECHNIQUE: AP portable chest image was obtained 07/17/2019 4:03 pm . FINDINGS: No acute lung parenchymal process seen. Calcified nodule or granuloma in the lower right l dayanna field has not changed. Heart and vasculature are normal. No measurable pleural effusion and no pn eumothorax. No acute bony abnormality seen. No acute aortic findings suspected. IMPRESSION: No acute cardiopulmonary process. No significant change from comparison.
[2019-07-17 17:06] VITALS: TEMP 97
[2019-07-17 17:07] VITALS: BP 122/78; O2SAT 97
--- NOTE | 2019-07-19 13:02 | EKG ---
Test Date: 2019-07-17 Test Time: 13:28:54 Senior Assistant Manager: GISSEL MEASUREMENT RESULTS: Intervals: Rate: 81 OK: 162 QRSD: 82 QT: 378 QTc: 439 [place]: P: 48 OK: 162 QRS: 84 T: 72 INTERPRETIVE STATEMENTS: Sinus rhythm with frequent premature ventricular complexes Otherwise normal ECG Electronically Signed On 07-19-19 13:01:25 CDT by Lai Joy
--- NOTE | 2019-07-21 15:59 | EDPHYS ---
Physician Documentation [facility] Name: Jeremiah Morales Age: 74 yrs Sex: Male : 1945 Arrival Date: 07/17/2019 Time: 12:54 Bed 24 Private MD: ED Physician Gus Casas HPI: 07/16 18:58 This 74 yrs old Male presents to ER via Wheelchair with complaints of Fall kdr Injury. 18:58 Details of fall: The patient fell from an upright position, while standing. Onset: The kdr symptoms/episode began/occurred suddenly, this morning. Associated injuries: The patient sustained injury to the chest, specifically the left lateral anterior chest, contusion, pain with breathing, pain with movement, tenderness. Severity of symptoms: At their worst the symptoms were mild, moderate, just prior to arrival, in the emergency department the symptoms are unchanged. The patient has not experienced similar symptoms in the past. The patient has not recently seen a physician. The patient states that he has had increased number of falls the last few weeks since he had been started on increased number of psych meds. Historical: - Allergies: 13:12 Grass Pollen; iw - Home Meds: 13:17 aspirin 81 mg Oral TbEC [Active]; Vitamin B-12 Oral daily [Active]; carvedilol 12.5 mg iw oral tab 1 tab 2 times per day [Active]; duloxetine 60 mg oral cpDR 1 cap once daily [Active]; famotidine 20 mg Oral tab 1 tab 2 times per day [Active]; folic acid 1 mg Oral tab 1 tab once daily [Active]; gabapentin 300 mg oral cap twice a day [Active]; magnesium oxide 500 mg Oral cap [Active]; metformin 500 mg Oral Tb24 2 times per day [Active]; nateglinide 120 mg oral tab 1 tab 3 times per day [Active]; omeprazole 40 mg Oral cpDR 1 cap once daily [Active]; sucralfate 1 gram Oral tab [Active]; Tradjenta 5 mg oral tab 1 tab once daily [Active]; zolpidem 10 mg Oral tab 1 tab once daily [Active]; Levemir 100 unit/mL subcutaneous soln nightly [Active]; hydrocodone-acetaminophen 10-325 mg Oral tab 1 tab every 4 hours [Active]; promethazine 25 mg Oral tab 1 tab every 6 hours [Active]; - PMHx: 13:12 Diabetes - NIDDM; Hypertension; 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 - Social history:: Smoking status: . ROS: 18:58 Constitutional: Negative for fever, chills, and weight loss, Eyes: Negative for injury, kdr pain, redness, and discharge, ENT: Negative for injury, pain, and discharge, Neck: Negative for injury, pain, and swelling, Respiratory: Negative for shortness of breath, cough, wheezing, and pleuritic chest pain, Abdomen/GI: Negative for abdominal pain, nausea, vomiting, diarrhea, and constipation, Back: Negative for injury and pain, : Negative for injury, bleeding, discharge, and swelling, MS/Extremity: Negative for injury and deformity, Skin: Negative for injury, rash, and discoloration, Neuro: Negative for headache, weakness, numbness, tingling, and seizure activity. Psych: Negative for depression, anxiety, suicide ideation, homicidal ideation, and hallucinations, Allergy/Immunology: Negative for hives, rash, and allergies, Endocrine: Negative for neck swelling, polydipsia, polyuria, polyphagia, and marked weight changes, Hematologic/Lymphatic: Negative for swollen nodes, abnormal bleeding, and unusual bruising. 18:58 Cardiovascular: Positive for chest pain, with cough, with movement, of the left lateral anterior chest. Exam: 18:58 Constitutional: This is a well developed, well nourished patient who is awake, alert, kdr and in no acute distress. Head/Face: Normocephalic, atraumatic. Eyes: Pupils equal round and reactive to light, extra-ocular motions intact. Lids and lashes normal. Conjunctiva and sclera are non-icteric and not injected. Cornea within normal limits. Periorbital areas with no swelling, redness, or edema. Neck: Trachea midline, no thyromegaly or masses palpated, and no cervical lymphadenopathy. Supple, full range of motion without nuchal rigidity, or vertebral point tenderness. No Meningismus. Cardiovascular: Regular rate and rhythm with a normal S1 and S2. No gallops, murmurs, or rubs. Normal PMI, no JVD. No pulse deficits. Respiratory: Lungs have equal breath sounds bilaterally, clear to auscultation and percussion. No rales, rhonchi or wheezes noted. No increased work of breathing, no retractions or nasal flaring. Abdomen/GI: Soft, non-tender, with normal bowel sounds. No distension or tympany. No guarding or rebound. No evidence of tenderness throughout. Back: No spinal tenderness. No costovertebral tenderness. Full range of motion. Skin: Warm, dry with normal turgor. Normal color with no rashes, no lesions, and no evidence of cellulitis. MS/ Extremity: Pulses equal, no cyanosis. Neurovascular intact. Full, normal range of motion. Neuro: Awake and alert, GCS 15, oriented to person, place, time, and situation. Cranial nerves II-XII grossly intact. Motor strength 5/5 in all extremities. Sensory grossly intact. Cerebellar exam normal. Normal gait. Psych: Awake, alert, with orientation to person, place and time. Behavior, mood, and affect are within normal limits. 18:58 Chest/axilla: Inspection: normal, no abrasion, no abscess, no assymetry, no cellulitis, no deformity, no ecchymosis, no evidence of flail chest, no paradoxical chest wall movement, no puncture, Palpation: tenderness, that is moderate, of the left lateral anterior chest, that totally reproduces the patient's complaints. Vital Signs: 13:17 BP 112 / 70; Pulse 82; Resp 16; Temp 97.0; Pulse Ox 98% on R/A; Weight 72.57 kg; Height iw 5 ft. 9 in. (175.26 cm); Pain 7/10; 16:30 BP 122 / 78; Pulse 74; Resp 16; Pulse Ox 97% on R/A; iw 13:17 Body Mass Index 23.63 (72.57 kg, 175.26 cm) iw MDM: 16:37 Patient medically screened. kdr 18:58 Data reviewed: vital signs, nurses notes, lab test result(s), radiologic studies. kdr Counseling: I had a detailed discussion with the patient and/or guardian regarding: the historical points, exam findings, and any diagnostic results supporting the discharge/admit diagnosis, radiology results, the need for outpatient follow up. 07/16 15:17 Order name: Ribs Left XRAY; Complete Time: 19:01 kdr 07/16 15:17 Order name: CXR XRAY; Complete Time: 19: kdr 07/16 15:20 Order name: Misc. Order: Clean wounds on left arm; Complete Time: 16:27 kdr Administered Medications: 15:40 Drug: [place] (7.5 mg-325 mg) 1 tabs Route: PO; iw 16:00 Follow up: Response: No adverse reaction iw 18:24 Follow up: Response: No adverse reaction iw Disposition: 07/17/19 16:37 Discharged to Home. Impression: Multiple fractures of ribs. - Condition is Stable. - Discharge Instructions: Rib Fracture, [id number]. - Prescriptions for Ibuprofen 600 mg Oral Tablet - take 1 tablet by ORAL route every 6 hours As needed take with food during the day; 30 tablet. Tylenol- Codeine #3 300-30 mg Oral Tablet - take 2 tablets by ORAL route every 6 hours As needed Take one or two tablets every 4-6 hours as needed for pain. Take at night for sleep.; 20 tablet. - Medication Reconciliation Form, Thank You Letter, Prescription Opioid Use form. - Follow up: Private Physician; When: 2 - 3 days; Reason: If symptoms return, Further diagnostic work-up, Recheck today's complaints, Continuance of care, Re-evaluation by your physician. Follow up: Josse Gustafson MD; When: 2 - 3 days; Reason: Further diagnostic work-up, Recheck today's complaints, Continuance of care, Re-evaluation by your physician. - Problem is new. - Symptoms have improved. Signatures: Dispatcher [employer] EDNV Gus Casas MD MD [facility] Harmony Ceballos RN RN Corrections: (The following items were deleted from the chart) 16:57 16:37 07/17/2019 16:37 Discharged to Home. Impression: Multiple fractures of ribs. iw Condition is Stable. Forms are Medication Reconciliation Form, Thank You Letter, Antibiotic Education, Prescription Opioid Use. Follow up: Private Physician; When: 2 - 3 days; Reason: If symptoms return, Further diagnostic work-up, Recheck today's complaints, Continuance of care, Re-evaluation by your physician. Follow up: Josse Gustafson; When: 2 - 3 days; Reason: Further diagnostic work-up, Recheck today's complaints, Continuance of care, Re-evaluation by your physician. Problem is new. Symptoms have improved. kdr
--- NOTE | 2019-07-21 15:59 | ER ---
Nurse's Notes [facility] Name: Jeremiah Morales Age: 74 yrs Sex: Male : 1945 Arrival Date: 07/17/2019 Time: 12:54 Bed 24 Private MD: Diagnosis: Multiple fractures of ribs Presentation: 07/16 13:09 Chief complaint: Patient states: fell 0500 yesterday morning and had another fall last iw night around 7pm, got tangled up in his own feet, has had 6 falls in last 5 weeks and has been more weak and dizzy has had some recent med changes, last night when he fell he hit his head and hurt his ribs on left side. Care prior to arrival: None. Mechanism of Injury: Fall from standing position. Trauma event details: Injury occurred in the [facility]. 13:09 Acuity: HEATHER 3 iw 13:09 Method Of Arrival: Wheelchair iw 13:17 Coronavirus screen: Proceed with normal triage. Patient denies a cough. Patient denies iw shortness of breath or difficulty breathing. Patient denies measured and/or subjective temperature greater than 100.4F prior to today's visit. Patient denies travel on a cruise ship or to a country the [facility] currently lists as an affected area. Patient denies contact with known and/or suspected case of COVID-19. Ebola Screen: Patient negative for fever greater than or equal to 101.5 degrees Fahrenheit, and additional compatible Ebola Virus Disease symptoms Patient denies exposure to infectious person. Patient denies travel to an Ebola-affected area in the 21 days before illness onset. No symptoms or risks identified at this time. Initial Sepsis Screen: Does the patient meet any 2 criteria? No. Patient's initial sepsis screen is negative. Does the patient have a suspected source of infection? No. Patient's initial sepsis screen is negative. Risk Assessment: Do you want to hurt yourself or someone else? Patient reports no desire to harm self or others. Onset of symptoms was July 16, 2019. Trauma Activation: Not Applicable Physician: ED Physician; Name: ; Notified At: ; Arrived At: Physician: General Surgeon; Name: ; Notified At: ; Arrived At: Physician: Radiology; Name: ; Notified At: ; Arrived At: Physician: Respiratory; Name: ; Notified At: ; Arrived At: Physician: Lab; Name: ; Notified At: ; Arrived At: Historical: - Allergies: 13:12 Grass Pollen; iw - Home Meds: 13:17 aspirin 81 mg Oral TbEC [Active]; Vitamin B-12 Oral daily [Active]; carvedilol 12.5 mg iw oral tab 1 tab 2 times per day [Active]; duloxetine 60 mg oral cpDR 1 cap once daily [Active]; famotidine 20 mg Oral tab 1 tab 2 times per day [Active]; folic acid 1 mg Oral tab 1 tab once daily [Active]; gabapentin 300 mg oral cap twice a day [Active]; magnesium oxide 500 mg Oral cap [Active]; metformin 500 mg Oral Tb24 2 times per day [Active]; nateglinide 120 mg oral tab 1 tab 3 times per day [Active]; omeprazole 40 mg Oral cpDR 1 cap once daily [Active]; sucralfate 1 gram Oral tab [Active]; Tradjenta 5 mg oral tab 1 tab once daily [Active]; zolpidem 10 mg Oral tab 1 tab once daily [Active]; Levemir 100 unit/mL subcutaneous soln nightly [Active]; hydrocodone-acetaminophen 10-325 mg Oral tab 1 tab every 4 hours [Active]; promethazine 25 mg Oral tab 1 tab every 6 hours [Active]; - PMHx: 13:12 Diabetes - NIDDM; Hypertension; 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 - Social history:: Smoking status: . Screenin:45 Abuse screen: Denies threats or abuse. Denies injuries from another. Tuberculosis iw screening: No symptoms or risk factors identified. 14:45 Nutritional screening: No deficits noted. Fall Risk Fall in past 12 months (25 points). iw Assessment: 14:44 General: Appears in no apparent distress. Behavior is calm, cooperative. Pain: iw Complains of pain in left lateral anterior chest and left arm. Neuro: Level of Consciousness is awake, alert, obeys commands, Oriented to person, place, time, situation, Moves all extremities. Cardiovascular: Patient's skin is warm and dry. Respiratory: Respiratory effort is even, unlabored, Respiratory pattern is regular. Derm: Skin is fragile, is thin, Wound noted dorsal aspect of left forearm Wound is skin tear. Musculoskeletal: Range of motion: intact in all extremities. 15:45 Reassessment: Patient appears in no apparent distress at this time. Patient and/or iw family updated on plan of care and expected duration. Pain level reassessed. Patient is alert, oriented x 3, equal unlabored respirations, skin warm/dry/pink. 16:29 Reassessment: Patient appears in no apparent distress at this time. Patient and/or iw family updated on plan of care and expected duration. Pain level reassessed. Patient is alert, oriented x 3, equal unlabored respirations, skin warm/dry/pink. skin tear to LFA cleaned and dressed, awaiting results of xray. Vital Signs: 13:17 BP 112 / 70; Pulse 82; Resp 16; Temp 97.0; Pulse Ox 98% on R/A; Weight 72.57 kg; Height iw 5 ft. 9 in. (175.26 cm); Pain 7/10; 16:30 BP 122 / 78; Pulse 74; Resp 16; Pulse Ox 97% on R/A; iw 13:17 Body Mass Index 23.63 (72.57 kg, 175.26 cm) iw ED Course: 12:54 Patient arrived in ED. fj1 13:12 Triage completed. iw 13:17 Arm band placed on. iw 14:37 Gus Casas MD is Attending Physician. kdr 14:43 Harmony Ceballos, RN is Primary Nurse. iw 15:45 No provider procedures requiring assistance completed. Patient did not have IV access iw during this emergency room visit. 16:00 Patient has correct armband on for positive identification. iw 16:02 Ribs Left XRAY In Process Unspecified. EDMS 16:02 CXR XRAY In Process Unspecified. EDMS 16:37 Josse Gustafson MD is Referral Physician. kdr Administered Medications: 15:40 Drug: [place] (7.5 mg-325 mg) 1 tabs Route: PO; iw 16:00 Follow up: Response: No adverse reaction iw 18:24 Follow up: Response: No adverse reaction iw Outcome: 16:37 Discharge ordered by . kdr 16:56 Discharged to home via wheelchair, with family. iw 16:56 Condition: good 16:56 Discharge instructions given to patient, family, Instructed on discharge instructions, follow up and referral plans. medication usage, Demonstrated understanding of instructions, follow-up care, medications, Prescriptions given X 2. 16:57 Patient left the ED. iw Signatures: Dispatcher [employer] EDMS Gus Casas MD MD kdr Harmony Ceballos RN RN iw Nestor Leo fj1 Corrections: (The following items were deleted from the chart) 13:13 13:09 Chief complaint: Patient states: fell 0500 yesterday morning and had another fall iw last night around 7pm, got tangled up in his own feet, has had 6 falls in last 5 weeks and has been more weak and dizzy has had some recent med changes, has hx of MS, last night when he fell he hit his head and hurt his ribs on right side iw 15:44 13:09 Chief complaint: Patient states: fell 0500 yesterday morning and had another fall iw last night around 7pm, got tangled up in his own feet, has had 6 falls in last 5 weeks and has been more weak and dizzy has had some recent med changes, last night when he fell he hit his head and hurt his ribs on right side iw
== END 2019-07-17 16:57 | disposition home or self-care (01) ==
LOC: ER 12:49
DX: S22.42XA Multiple fractures of ribs, left side, initial encounter for closed fracture (principal); W19.XXXA Unspecified fall, initial encounter; Z91.81 History of falling; Y93.9 Activity, unspecified; Y92.9 Unspecified place or not applicable; J30.1 Allergic rhinitis due to pollen; Z79.82 Long term (current) use of aspirin; I10 Essential (primary) hypertension; E11.9 Type 2 diabetes mellitus without complications; Z79.4 Long term (current) use of insulin
CPT/HCPCS: 71045; 93005; 99283